=== PATIENT | female | born 1995 | race Caucasian/White ===

== ENCOUNTER 2017-08-23 13:37 | Emergency (ER) | payer OTHER, SELFPAY ==
[2017-08-23 13:39] VITALS: BP 144/86; PULSE 121; RESP 16; TEMP 37.2; O2SAT 97; BMI 28.8
[2017-08-23] MEDS: DiphenhydrAMINE 50 MG/ML Syringe 25 MG IV (15:04)
[2017-08-23] MEDS: Metoclopramide 10 MG/2 ML Vial IV (15:04)
[2017-08-23] MEDS: Ketorolac 30 MG/ML Syringe IV (15:05)
[2017-08-23] MEDS: 0.9% Normal Saline 1,000 ML 999 ML IV (15:05)
--- NOTE | 2017-08-23 15:52 | ED.DCSUM_ITS ---
- ER Visit Summary Date of Service: 08/23/17 Chief Complaint: Sent from urgent care because of fever 104.0? and bad headache History of Present Illness: The patient is a 22 F who went to the urgent care center. Based on her complaints I was contacted by the urgent care provider who sent her to the emergency room for evaluation because of bad headache and temperature documented 204.0?F at home and 100.7? at the urgent care center. She complains of bifrontal headache. She denies photophobia, neck pain or neck stiffness. She denies rash. She denies rhinorrhea, postnasal drainage, sore throat or earache. She states yesterday she had ear pain on the right. She denies cough or shortness of breath. Denies chest pain. She denies dysuria, frequency, urgency or hematuria. She denies abdominal pain or back pain. She has no other complaints please read written note Physical Examination: Patient's vitals are remarkable for blood pressure 144/ 86. Heart rate is 121. Temperature is 97?. Head is atraumatic normocephalic. Pupils are equal round reactive. Extraocular muscles are intact. TMs are pearly white with landmarks noted. Nares patent with normal clear drainage. Posterior pharynx without erythema or exudate. Uvula is midline. There is no dysphonia or dysphasia. Trachea is midline. There is no stridor with auscultation of the neck. Is supple with negative Kernig's and Brezinski sign. Heart is rapid and regular without murmur, gallop or rub. S1 and S2 are normal. Lungs are clear to auscultation with good movement of air bilaterally. Abdomen is soft and nontender with normal bowel sounds. No rash or lesions are noted head, torso or extremities. Patient is alert and oriented ?3. Motor is 5 over 5. Sensory is intact. DTRs are symmetric with no clonus or Babinski sign. Cranial 2 through 12 are intact. Cerebellar testing is normal. Test Results: None were obtained Emergency Department Course and Treatment: Patient was medicated with 25 mg of Benadryl and 30 mg of Toradol IV push followed by 10 mg of Reglan IV push. She was reassessed at 1545. She reports a 95% reduction in her discomfort. She is sitting up smiling in no distress. Treatment Plan: Appropriate home-going instructions Disposition: Discharged to home in stable and improved condition. Should she does not have a primary care physician she was referred to Dr. Alexx Hu Impression: 1. Viral cephalgia 2. Fever secondary #1 This note was generated with [employer] dictation software. It may contain incorrect words, spelling, and punctuation that were not noted in review of the chart prior to signing ED Disposition - Plan for ED Patient: Disposition: Home or Assisted Living Chief Complaint: Headache Instructions: ED Viral Syndrome Referrals: Care Physician,No Primary [Primary Care Provider] - Alexx Hu MD [STAFF PHYSICIAN] - As Needed
[2017-08-23 16:03] VITALS: PULSE 114; RESP 14; O2SAT 97
== END 2017-08-23 16:04 | disposition home or self-care (01) ==
PROVIDERS: Emergency Provider Emergency Medicine
DX: G44.89 Other headache syndrome (principal); R50.9 Fever, unspecified
CPT/HCPCS: 96361; 96374; 96375; 99284; J7030

== ENCOUNTER → 2018-01-19 14:12 | Outpatient (CLI) | payer OTHER, SELFPAY ==
[2018-01-19 16:11] LABS: hCG Titer Quant., Serum 37715 mIU/mL (<9 non-preg)
== END ==
PROVIDERS: Nurse Practitioner Women's Health; Visit Provider Obstetrics & Gynecology
DX: N91.2 Amenorrhea, unspecified (principal)
CPT/HCPCS: 36415; 84702

== ENCOUNTER → 2018-01-30 08:48 | Outpatient (CLI) | payer OTHER, SELFPAY | PROVIDERS: Visit Provider Obstetrics & Gynecology | DX: Z34.00 Encounter for supervision of normal first pregnancy, unspecified trimester (principal) | CPT/HCPCS: 76801 ==

== ENCOUNTER → 2018-01-31 12:42 | Outpatient (CLI) | payer OTHER, SELFPAY ==
[2018-01-31 13:45] LABS: Absolute Lymphocyte Count 2.37 X10^3/ul (0.83-4.51); Basophil# 0.01 X10^3/uL; Basophil% 0.1 % (0-1); Eosinophil# 0.04 X10^3/uL; Eosinophils% 0.5 % (0-5); Hematocrit 36.5 % (37-47); Hemoglobin 12.2 g/dl (12.0-15.0); Lymphocyte # 2.37 X10^3/ul (4.0); Lymphocyte % 29.2 % (19-41); Mean Corp Hgb Conc 33.4 g/gl (32-36); Mean Corpuscular Hgb 31.2 pg (27.0-32.0); Mean Corpuscular Volume 93.4 fL (81-99); Mean Platelet Vol. 11.1 fl (6.2-12.0); Monocyte# 0.69 X10^3/uL; Monocyte% 8.5 % (0-10); Neutrophil # 4.99 X10^3/uL (2.7-7.7); Neutrophil % 61.5 % (47-70); Platelet Count 245 K/mm3 (150-450); RBC Distribution Width CV 12.6 % (11.6-14.6); RBC Distribution Width SD 41.9 fl (35.1-43.9); Red Blood Count 3.91 M/mm3 (4.2-5.4); White Blood Count 8.1 K/mm3 (4.4-11.0)
[2018-01-31 13:47] LABS: POSITIVE COUNT NO; POSITIVE DIFFERENTIAL NO; POSITIVE MORPHOLOGY NO
[2018-01-31 22:34] LABS: Chlamydia Trachomatis by PCR Negative (Negative); Neisserai gonorrhoeae by PCR Negative (Negative); Probe Check PASS; Sample Adequacy Control PASS; Specimen Processing Control PASS
[2018-02-01 09:13] LABS: HIV - WCH Non-Reactive (Nonreactive); Rubella IgG 69.1 IU/mL
[2018-02-03 01:02] LABS: Rapid Plasmin Reagin (RPR) NONREACTIVE (NONREACTIVE)
[2018-02-03 18:41] LABS: HEPATITIS B SURFACE AG Negative (Negative)
== END ==
PROVIDERS: Visit Provider Obstetrics & Gynecology
DX: Z34.90 Encounter for supervision of normal pregnancy, unspecified, unspecified trimester (principal)
CPT/HCPCS: 36415; 85025; 86592; 86703; 86762; 86850; 86900; 87086; 87088; 87186; 87340; 87491; 87591

== ENCOUNTER → 2018-02-28 12:34 | Outpatient (CLI) | payer OTHER, SELFPAY | PROVIDERS: Visit Provider Obstetrics & Gynecology | DX: O23.40 Unspecified infection of urinary tract in pregnancy, unspecified trimester (principal); Z3A.00 Weeks of gestation of pregnancy not specified | CPT/HCPCS: 87086; 87088; 87186 ==

== ENCOUNTER → 2018-03-29 09:36 | Outpatient (CLI) | payer OTHER, SELFPAY ==
[2018-03-29 10:52] LABS: Thyroid Stim Hormone (TSH) 3.15 uIU/mL (0.358-3.74)
[2018-03-31 13:10] LABS: AFP MoM Value 0.85 (.); Comment Report (.); DIA MoM Value 0.68 (.); DIA Value-EIA 96.81 pg/mL (.); DSR (By Age) 1071 (.); DSR (Second Trimester) 10000 (.); Gestat. Age Based On As provided (.); Gestational Age 17.3 WEEKS (.); Insulin Dep Diabetes No (.); hCG Value 15299 mIU/mL (.)
== END ==
PROVIDERS: Referring Provider Nurse Practitioner Women's Health; Visit Provider Nurse Practitioner Women's Health
DX: O23.40 Unspecified infection of urinary tract in pregnancy, unspecified trimester (principal); O99.280 Endocrine, nutritional and metabolic diseases complicating pregnancy, unspecified trimester; E01.0 Iodine-deficiency related diffuse (endemic) goiter; Z3A.00 Weeks of gestation of pregnancy not specified
CPT/HCPCS: 36415; 82105; 82677; 84443; 84702; 86336; 87086; 87088

== ENCOUNTER → 2018-06-15 10:37 | Outpatient (CLI) | payer OTHER, SELFPAY ==
[2018-06-15 10:13] VITALS: BMI 30.9
[2018-06-15 11:30] LABS: Absolute Neutrophil Count 6.2 X10^3/uL (2.0-7.7); Basophil# 0.01 X10^3/uL; Basophil% 0.1 % (0-1); Eosinophil# 0.06 X10^3/uL; Eosinophils% 0.6 % (0-5); Hematocrit 32.2 % (37-47); Hemoglobin 10.8 g/dl (12.0-15.0); Lymphocyte % 27.4 % (19-41); Mean Corp Hgb Conc 33.5 g/gl (32-36); Mean Corpuscular Hgb 32.2 pg (27.0-32.0); Mean Corpuscular Volume 96.1 fL (81-99); Mean Platelet Vol. 11.7 fl (6.2-12.0); Monocyte# 0.61 X10^3/uL; Monocyte% 6.4 % (0-10); Neutrophil # 6.17 X10^3/uL (2.7-7.7); Neutrophil % 65.1 % (47-70); Platelet Count 206 K/mm3 (150-450); RBC Distribution Width CV 12.1 % (11.6-14.6); RBC Distribution Width SD 40.8 fl (35.1-43.9); Red Blood Count 3.35 M/mm3 (4.2-5.4); White Blood Count 9.5 K/mm3 (4.4-11.0)
[2018-06-15 11:32] LABS: POSITIVE COUNT NO; POSITIVE DIFFERENTIAL NO; POSITIVE MORPHOLOGY NO
[2018-06-15 11:35] LABS: Glucose Challenge Gest 1H 50g 142 mg/dL (70-140)
== END ==
PROVIDERS: Referring Provider Nurse Practitioner Women's Health; Visit Provider Nurse Practitioner Women's Health
DX: Z34.90 Encounter for supervision of normal pregnancy, unspecified, unspecified trimester (principal)
CPT/HCPCS: 36415; 82950; 85025

== ENCOUNTER → 2018-06-21 09:34 | Outpatient (CLI) | payer OTHER, SELFPAY ==
[2018-06-15 10:13] VITALS: BMI 30.9
[2018-06-21 11:43] LABS: Glucose GTT-Gestation. Fasting 69 mg/dL (<105)
[2018-06-21 11:45] LABS: Glucose GTT-Gestational 1 Hr 145 mg/dL (<190)
[2018-06-21 13:22] LABS: Glucose GTT-Gestational 2 Hr 111 mg/dL (<165)
[2018-06-21 14:08] LABS: Glucose GTT-Gestational 3 Hr 108 L (<145)
== END ==
PROVIDERS: Referring Provider Nurse Practitioner Women's Health; Visit Provider Nurse Practitioner Women's Health
DX: O99.810 Abnormal glucose complicating pregnancy (principal); Z3A.00 Weeks of gestation of pregnancy not specified
CPT/HCPCS: 36415; 82951; 82952

== ENCOUNTER → 2018-08-09 16:53 | Outpatient (CLI) | payer OTHER, SELFPAY ==
[2018-08-09 09:03] VITALS: BMI 30.5
== END ==
PROVIDERS: Referring Provider Obstetrics & Gynecology; Visit Provider Obstetrics & Gynecology
DX: Z34.90 Encounter for supervision of normal pregnancy, unspecified, unspecified trimester (principal)
CPT/HCPCS: 87081

== ENCOUNTER 2018-09-06 12:15 | Inpatient (IN) | payer OTHER, SELFPAY ==
[2018-09-06 09:54] VITALS: BMI 30.5
--- NOTE | 2018-09-06 10:36 | US_ITS ---
STUDY: SECOND AND THIRD TRIMESTER OBSTETRICAL ULTRASOUND - LIMITED REASON FOR EXAM: Female, 23 years old. growth. LMP: 11/27/2017 PRIOR ULTRASOUND: None. TECHNIQUE: Transabdominal TECHNICAL QUALITY: Adequate. FINDINGS: There is a single intrauterine fetus. The fetus is in a cephalic presentation. There is demonstrated cardiac activity with a heart rate of 127 bpm. There is no measurable amniotic fluid volume consistent with severe oligohydramnios. The placenta is anterior in location and is not low lying. There are Grade 3 placental changes. The cervix is not measurable but is grossly closed. BIOMETRY: BPD: 9.4: 38 weeks, 1 days HC: 34.8: 40 weeks, 3 days AC: 35.4: 39 weeks, 2 days FL: 7.7: 39 weeks, 2 days Age by LMP: 40 weeks, 3 days. CIRO by LMP: 09/03/2018. age by prior US: weeks, days. CIRO by prior US: . age by current US: 39 weeks, 2 days. CIRO by current US: 09/11/2018. Estimated weight: 3721 grams, +/- 543 grams, percentile. Gender: US/OB Limited With Biometrics IMPRESSION: Single live fetus in a vertex presentation. survey not performed on this exam. Placenta is grade 3 and is not low-lying. Severe oligohydramnios. No amniotic fluid is seen. Cervix is grossly closed but not measured. age by current US: 39 weeks, 2 days. CIRO by current US: 09/11/2018. Estimated weight: 3721 grams, +/- 543 grams, percentile. Electronically Signed: Miguel Donis MD at 11:39 EDT , Service support ,
[2018-09-06 12:32] VITALS: BMI 30.1
[2018-09-06] MEDS: Lactated Ringers 1,000 ML 50 ML IV ×3 (12:40→21:43)
[2018-09-06 12:59] LABS: Absolute Lymphocyte Count 1.66 X10^3/ul (0.83-4.51); Absolute Neutrophil Count 6.7 X10^3/uL (2.0-7.7); Basophil# 0.01 X10^3/uL; Basophil% 0.1 % (0-1); Eosinophil# 0.03 X10^3/uL; Eosinophils% 0.3 % (0-5); Hematocrit 34.2 % (37-47); Hemoglobin 11.2 g/dl (12.0-15.0); Lymphocyte # 1.66 X10^3/ul (4.0); Lymphocyte % 18.4 % (19-41); Mean Corp Hgb Conc 32.7 g/gl (32-36); Mean Corpuscular Hgb 30.1 pg (27.0-32.0); Mean Corpuscular Volume 91.9 fL (81-99); Mean Platelet Vol. 12.6 fl (6.2-12.0); Monocyte# 0.62 X10^3/uL; Monocyte% 6.9 % (0-10); Neutrophil # 6.69 X10^3/uL (2.7-7.7); Neutrophil % 74.1 % (47-70); Platelet Count 192 K/mm3 (150-450); RBC Distribution Width CV 13.5 % (11.6-14.6); Red Blood Count 3.72 M/mm3 (4.2-5.4)
[2018-09-06 13:01] LABS: POSITIVE COUNT NO; POSITIVE DIFFERENTIAL NO; POSITIVE MORPHOLOGY NO
[2018-09-06] MEDS: Oxytocin 30 units/NS 500 ml 30 UNITS/500 ML IV.SOLN IV (13:38)
[2018-09-06] MEDS: 0.9% Normal Saline 100 ML IV.SOLN. INTRA-UTER (14:05)
[2018-09-06] MEDS: fentaNYL-bupivacaine (epidural) 100 ML BAG EPIDURAL ×2 (19:18→23:44)
[2018-09-06] MEDS: Amnioinfusion- 0.9% NS 1,000 ML IV.SOLN. INTRA-UTER (21:00)
--- NOTE | 2018-09-06 21:27 | PCM.HP.OB ---
- Problem List (1) Oligohydramnios Status: Acute (2) Anemia affecting Status: Acute Qualifiers: Comment: iron (3) Abnormal glucose affecting Status: Acute Comment: normal 3 hr GTT (4) Status: Acute Qualifiers: Comment: genetic,carrier screening declined.AFP negative.MFM anatomy US normal (5) UTI in Status: Acute Qualifiers: Comment: 02/02/18 E Coli-Rx ampicillin. Repeat culture negative (6) Normal Status: Acute Qualifiers: Comment: PRR CIRO 09/03/18 boy Price Ibrahima (7) Thyromegaly Status: Acute Comment: enlarged right gland, nl labs (8) PCOS (polycystic ovarian syndrome) Status: Acute Comment: clomid History Date of Admission: 09/06/18 Final CIRO: 09/03/18 Gestational age: 40 Weeks and 3 Days History of this : This is a 23 year-old, at 40 weeks gestational age presents for IOL secondary to severe oligo. she was found in the office to have a low fundal height and then growth us showed no fluid visible. she admits good fm and denies any vb lof or regular ctx. Medical History: Medical History (Last Reviewed 09/06/18 @ 09:54 by Ne Trejo) PCOS (polycystic ovarian syndrome) (Acute) E28.2 clomid Surgical History: Surgical History (Last Reviewed 09/06/18 @ 09:54 by Ne Trejo) H/O knee surgery Z98.890 History of foot surgery Z98.890 Allergies No Known Allergies Allergy (Verified 09/06/18 09:53) Home Medications: Home Medications vitamin,calcium,dpgqrbeq-epcz-ycrlv acid tablet 1 tab PO QDAY 01/31/18 ferrous sulfate 325 mg (65 mg iron) tablet 325 mg PO DAILY tab 06/28/18 Smoking Status: Former smoker Alcohol: None Number of Fetus(es): 1 Heart Tracin moderate variability reactive no decelerations category I tracing [place]: no regular History Past Pregnancies: Past Pregnancies Delivery Date Name GA/Weeks Outcome Route Weight Infant Gender Labor Length Anesthesia Delivery Location Provider FOB Labs: Mom's Current Diagnoses Post-term 09/06/18 Mom's Labs & Results 09/06/18 09/06/18 12:40 12:40 WBC 9.0 RBC 3.72 L Hgb 11.2 L Hct 34.2 L MCV 91.9 MCH 30.1 MCHC 32.7 RDW 13.5 RDW Differential 45.0 H Plt Count 192 MPV 12.6 H Immature Gran % (Auto) 0.200 Neut % (Auto) 74.1 H Lymph % (Auto) 18.4 L [place] % (Auto) 6.9 Eos % (Auto) 0.3 Baso % (Auto) 0.1 Absolute Neuts (auto) 6.7 Absolute Lymphs (auto) 1.66 Total Counted Not Reportable Blood Type O POSITIVE Antibody Screen NEGATIVE Course Did the patient receive Yes care? Labs Blood Type: O RH: POSITIVE RPR/VDRL/Syphilis Nonreactive Rubella status Immune HbSAg Negative Date Done: 01/31/18 Chlamydia Negative Gonorrhea Negative HIV/AIDS Non-Reactive Group B Strep: Negative Current Obstetrical History Gestational Diabetes No Incompetent Cervix No Infertility Yes: clomid IUGR No Macrosomia No Hypertension/Pre-eclampsia No Placenta Previa/Abruption No PTL/PROM No Uterine anomaly No Oligohydramnios Yes Polyhydramnios No Multiple gestation No Past Medical History Asthma No Diabetes No Hypertension No Heart disease No Mitral valve prolapse No Neurologic/Seizure disorder/ No Migraines Kidney disease No Liver disease No Varicosities No Clotting disorders/Hx of DVT No Thyroid Dysfunction No Other medical diseases No Psychiatric disorders No Major trauma No Abnormal PAP smear No Sleep apnea No Mammogram in the last 2 years No Enter 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 sx performed for history repair as a child. Social History Marital Status: SINGLE Alleged father Ibrahima Bonilla Hx Smoking Yes Smoking Status Former smoker Expected Infant Delivery Method: Spontaneous Vaginal Review of Systems Constitutional: Denies: Fever, Malaise Eyes: Denies: Blurred vision, Vision Change HEENT: Denies: Head Aches, Visual Changes Cardiovascular: Denies: Chest Pain, Palpitations Respiratory: Denies: Cough, Shortness of Breath, Wheezing Gastrointestinal: Denies: Abdominal Pain, Diarrhea, Nausea, Vomiting Genitourinary: Denies: Dysuria, Hematuria Musculoskeletal: Denies: Joint Pain, Muscle pain Skin: Denies: Lesions, Rash Neurological: Denies: Blurred vision, Focal weakness, Headaches Psychiatric: Denies: Anxiety, Depression Endocrine: Denies: Heat/ Cold Intolerance Hematologic/ Lymphatic: Denies: Easy Bruising, Easy Bleeding Physical Exam General: Alert, Cooperative, No apparent distress HEENT: Atraumatic, Normocephalic. Negative for: Thyromegaly, Lymphadenopathy Cardiovascular: Regular rate Lungs: Normal air movement Abdomen: Soft, Non Tender, Gravid Neurological: Deep Tendon Reflexes 2+/4 and Symmetrical, Neuro grossly intact. Negative for: Clonus MANAGER OF PATIENT: Normal external genitalia. Negative for: Vulvar lesions Estimated gestational size: Appropriate for gestational size Presentation: Cephalic Assessment/Plan All Active Problems (Last Reviewed 09/06/18 @ 09:54 by Ne Trejo) Oligohydramnios (Acute) Anemia affecting (Acute) Abnormal glucose affecting (Acute) (Acute) UTI in (Acute) Normal (Acute) Thyromegaly (Acute) PCOS (polycystic ovarian syndrome) (Acute) This is a 23 year-old, at 40 weeks gestational age presents IOL oligo Patient presents IOL, plan management for , pitocin/AROM Pain management: plans epidural. GBS negative. Management of any complications: oligo I have [facility] and made any clinically relevant updates.
--- NOTE | 2018-09-06 21:30 | HP.PCM_ITS ---
- Problem List (1) Oligohydramnios Status: Acute (2) Anemia affecting Status: Acute Qualifiers: Comment: iron (3) Abnormal glucose affecting Status: Acute Comment: normal 3 hr GTT (4) Status: Acute Qualifiers: Comment: genetic,carrier screening declined.AFP negative.MFM anatomy US normal (5) UTI in Status: Acute Qualifiers: Comment: 02/02/18 E Coli-Rx ampicillin. Repeat culture negative (6) Normal Status: Acute Qualifiers: Comment: PRR CIRO 09/03/18 boy Price Ibrahmia (7) Thyromegaly Status: Acute Comment: enlarged right gland, nl labs (8) PCOS (polycystic ovarian syndrome) Status: Acute Comment: clomid History Date of Admission: 09/06/18 Final CIRO: 09/03/18 Gestational age: 40 Weeks and 3 Days History of this : This is a 23 year-old, at 40 weeks gestational age presents for IOL secondary to severe oligo. she was found in the office to have a low fundal height and then growth us showed no fluid visible. she admits good fm and denies any vb lof or regular ctx. Medical History: Medical History (Last Reviewed 09/06/18 @ 09:54 by Ne Trejo) PCOS (polycystic ovarian syndrome) (Acute) E28.2 clomid Surgical History: Surgical History (Last Reviewed 09/06/18 @ 09:54 by Ne Trejo) H/O knee surgery Z98.890 History of foot surgery Z98.890 Allergies No Known Allergies Allergy (Verified 09/06/18 09:53) Home Medications: Home Medications vitamin,calcium,dsxiwdcq-chdj-kytfg acid tablet 1 tab PO QDAY 01/31/18 ferrous sulfate 325 mg (65 mg iron) tablet 325 mg PO DAILY tab 06/28/18 Smoking Status: Former smoker Alcohol: None Number of Fetus(es): 1 Heart Tracin moderate variability reactive no decelerations category I tracing [place]: no regular History Past Pregnancies: Past Pregnancies Delivery Date Name GA/Weeks Outcome Route Weight Infant Gender Labor Length Anesthesia Delivery Location Provider FOB Labs: Mom's Current Diagnoses Post-term 09/06/18 Mom's Labs & Results 09/06/18 09/06/18 12:40 12:40 WBC 9.0 RBC 3.72 L Hgb 11.2 L Hct 34.2 L MCV 91.9 MCH 30.1 MCHC 32.7 RDW 13.5 RDW Differential 45.0 H Plt Count 192 MPV 12.6 H Immature Gran % (Auto) 0.200 Neut % (Auto) 74.1 H Lymph % (Auto) 18.4 L [place] % (Auto) 6.9 Eos % (Auto) 0.3 Baso % (Auto) 0.1 Absolute Neuts (auto) 6.7 Absolute Lymphs (auto) 1.66 Total Counted Not Reportable Blood Type O POSITIVE Antibody Screen NEGATIVE Course Did the patient receive Yes care? Labs Blood Type: O RH: POSITIVE RPR/VDRL/Syphilis Nonreactive Rubella status Immune HbSAg Negative Date Done: 01/31/18 Chlamydia Negative Gonorrhea Negative HIV/AIDS Non-Reactive Group B Strep: Negative Current Obstetrical History Gestational Diabetes No Incompetent Cervix No Infertility Yes: clomid IUGR No Macrosomia No Hypertension/Pre-eclampsia No Placenta Previa/Abruption No PTL/PROM No Uterine anomaly No Oligohydramnios Yes Polyhydramnios No Multiple gestation No Past Medical History Asthma No Diabetes No Hypertension No Heart disease No Mitral valve prolapse No Neurologic/Seizure disorder/ No Migraines Kidney disease No Liver disease No Varicosities No Clotting disorders/Hx of DVT No Thyroid Dysfunction No Other medical diseases No Psychiatric disorders No Major trauma No Abnormal PAP smear No Sleep apnea No Mammogram in the last 2 years No Enter 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 sx performed for history repair as a child. Social History Marital Status: SINGLE Alleged father Ibrahima Bonilla Hx Smoking Yes Smoking Status Former smoker Expected Infant Delivery Method: Spontaneous Vaginal Review of Systems Constitutional: Denies: Fever, Malaise Eyes: Denies: Blurred vision, Vision Change HEENT: Denies: Head Aches, Visual Changes Cardiovascular: Denies: Chest Pain, Palpitations Respiratory: Denies: Cough, Shortness of Breath, Wheezing Gastrointestinal: Denies: Abdominal Pain, Diarrhea, Nausea, Vomiting Genitourinary: Denies: Dysuria, Hematuria Musculoskeletal: Denies: Joint Pain, Muscle pain Skin: Denies: Lesions, Rash Neurological: Denies: Blurred vision, Focal weakness, Headaches Psychiatric: Denies: Anxiety, Depression Endocrine: Denies: Heat/ Cold Intolerance Hematologic/ Lymphatic: Denies: Easy Bruising, Easy Bleeding Physical Exam General: Alert, Cooperative, No apparent distress HEENT: Atraumatic, Normocephalic. Negative for: Thyromegaly, Lymphadenopathy Cardiovascular: Regular rate Lungs: Normal air movement Abdomen: Soft, Non Tender, Gravid Neurological: Deep Tendon Reflexes 2+/4 and Symmetrical, Neuro grossly intact. 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 Negative for: Vulvar lesions Estimated gestational size: Appropriate for gestational size Presentation: Cephalic Assessment/Plan All Active Problems (Last Reviewed 09/06/18 @ 09:54 by Ne Trejo) Oligohydramnios (Acute) Anemia affecting (Acute) Abnormal glucose affecting (Acute) (Acute) UTI in (Acute) Normal (Acute) Thyromegaly (Acute) PCOS (polycystic ovarian syndrome) (Acute) This is a 23 year-old, at 40 weeks gestational age presents IOL oligo Patient presents IOL, plan management for , pitocin/AROM Pain management: plans epidural. GBS negative. Management of any complications: oligo [facility] and made any clinically relevant updates.
[2018-09-06] MEDS: Ondansetron 4 MG/2 ML Vial IV (23:42)
[2018-09-07] MEDS: Oxytocin 30 units/NS 500 ml 30 UNITS/500 ML IV.SOLN 334 UNITS IV (00:55)
[2018-09-07] MEDS: Oxytocin 30 units/NS 500 ml 30 UNITS/500 ML IV.SOLN 167 UNITS IV (01:26)
--- NOTE | 2018-09-07 01:46 | PCM.OB.VAG ---
- Problem List (1) Oligohydramnios Status: Acute (2) Anemia affecting Status: Acute Qualifiers: Comment: iron (3) Abnormal glucose affecting Status: Acute Comment: normal 3 hr GTT (4) Status: Acute Qualifiers: Comment: genetic,carrier screening declined.AFP negative.MFM anatomy US normal (5) UTI in Status: Acute Qualifiers: Comment: 02/02/18 E Coli-Rx ampicillin. Repeat culture negative (6) Normal Status: Acute Qualifiers: Comment: PRR CIRO 09/03/18 boy Price Ibrahima (7) Thyromegaly Status: Acute Comment: enlarged right gland, nl labs (8) PCOS (polycystic ovarian syndrome) Status: Acute Comment: clomid Vaginal Delivery Maternal Presentation: Medically Indicated Induction Induction of labor severe oligohydramnios 40 weeks 3 days Method of Induction: Pitocin, [place] [facility] Medical Reason for Induction: - - Oligohydramnios Amniotic Membrane Rupture Type: Artificial Amniotic Fluid Description: Clear Final CIRO: 09/03/18 Gestational age: 40 Weeks and 4 Days Date of Procedure: 09/07/18 Pre-Operative Diagnosis: Induction of labor oligo Post-Operative Diagnosis: Same Surgery/ Procedure Performed: Spontaneous Vaginal Delivery Type of Anesthesia: Epidural Description of Procedure: Patient began pushing and delivered the head in the EDEN presentation. The head was delivered atraumatically. The anterior and posterior shoulders delivered without complication followed by the rest of the and the infant was placed on the maternal abdomen. Delayed cord clamping was employed for approximately 60 seconds. Cord was clamped and cut and gentle traction was applied to the cord and the placenta delivered spontaneously immediately following it was noted to be intact with three-vessel cord. The perineum and vagina were inspected and noted to have a first-degree perineal laceration was repaired in the usual fashion. EBL was 300 cc. Patient and infant tolerated delivery well. Presentation: EDEN Placental Delivery Description: Spontaneous - small for GA and peripheral cotyledon Placenta Disposition: [facility] Cord Vessel Description: 3 Vessels Cord Entanglement: None Estimated Blood Loss: 300 Infant A gender: Male Episiotomy Description: None Laceration: Perineal Extension/lac, 1st degree Medications given after delivery: IV Pitocin Complications: None
[2018-09-07] MEDS: 0.9% Saline Lock 10 ML Syringe IV (02:30)
[2018-09-07 09:00] VITALS: BP 129/64; PULSE 112; RESP 16; TEMP 37.1; O2SAT 98
[2018-09-07 11:50] VITALS: BP 97/55; PULSE 101; RESP 16; TEMP 36.9; O2SAT 96
[2018-09-07] MEDS: Senna/Docusate Sodium 1 Tablet PO (15:45)
[2018-09-07 16:24] VITALS: BP 118/71; PULSE 96; RESP 14; TEMP 36.5
[2018-09-07 16:26] VITALS: O2SAT 98
[2018-09-07 20:30] VITALS: BP 126/77; PULSE 88; RESP 16; TEMP 36.8
[2018-09-08 01:15] VITALS: BP 111/62; PULSE 78; RESP 16; TEMP 36.6
[2018-09-08] MEDS: Senna/Docusate Sodium 1 Tablet PO (08:01)
[2018-09-08 08:30] VITALS: BP 108/62; PULSE 81; RESP 17; TEMP 36.6; O2SAT 100
--- NOTE | 2018-09-08 14:27 | PCM.PN.OB ---
Subjective: doing well no complaints pain controlled no CP SOB N V ambulating well tolerating po lochia moderate, going well - Physical Exam General: Alert, Oriented x3 Vital Signs Temp Pulse Resp BP Pulse Ox 97.9 F 81 17 108/62 100 09/08/18 08:30 09/08/18 08:30 09/08/18 08:30 09/08/18 08:30 09/08/18 08:30 Oxygen Delivery Method Room Air Weight: 198 lb Body Mass Index (BMI) 30.1 Intake and Output for Last 24 Hours 09/06/18 09/07/18 09/08/18 23:59 23:59 23:59 Intake Total 3736 / 3736 Output Total 2375 / 2375 1500 / 1500 Balance 1361 / 1361 -1500 / -1500 Medical Necessity - Tobacco Use Smoking Status: Former smoker Assessment/Plan All Active Problems (Last Reviewed 09/06/18 @ 09:54 by Ne Trejo) Oligohydramnios (Acute) Anemia affecting (Acute) Abnormal glucose affecting (Acute) (Acute) UTI in (Acute) Normal (Acute) Thyromegaly (Acute) PCOS (polycystic ovarian syndrome) (Acute) s/p PPD # 2 1. routine post delivery care 2. breast feeding- support given 3. rh positive 4. rubella immune
--- NOTE | 2018-09-08 14:27 | PCM.DCVAG ---
Discharge Diet: No Restrictions Discharge Activity: Return to Normal Activity, May not drive while taking narcotic pain medications., May Shower May resume sexual activity in: 4-6 weeks Call your doctor if your incision/area has: Continuous Slow Oozing, Sudden Increased Bleeding, Increased Pain/ Swelling, Increased Redness, Foul Smelling Discharge Additional Instructions: If you experience any of the following, contact your healthcare provider. Bleeding that soaks a pad every hour for 2 hours Fever 100.4 or higher Unrelieved incision or abdominal pain Swelling, redness, discharge or bleeding from your incision or episiotomy site Your incision begins to separate Problems urinating (including inability to urinate or burning while urinating). Visual changes Severe headache Flu-like symptoms Pain or redness in one of both of your breasts Pain, warmth, tenderness or swelling in your legs, especially the calf area Frequent nausea and vomiting Symptoms of depression or anxiety If you experience any of the following, call 911 or go to the nearest Emergency Room. Chest pain Problems breathing Seizure activity Partial or complete paralysis of a body part, slurred speech, weakness or drooping of the face, or a sudden inability to walk or hold your balance Allergies/Adverse Reactions: Allergies No Known Allergies Allergy (Verified 09/06/18 09:53) Medications to take at Discharge vitamin,calcium,zldyscwq-ggxx-svrne acid tablet 1 tab PO QDAY 01/31/18 ferrous sulfate 325 mg (65 mg iron) tablet 325 mg PO DAILY tab 06/28/18 Please Follow Up With: Samantha Serra MD - [phone] When: Call to make an appointment with your doctor in 6 weeks. If you had elevated Blood pressure or 4th degree laceration you will need to be seen in 2 weeks. Primary Care Physician: Care Physician,No Primary [Primary Care Provider] - Test Results: Test results from this visit will be discussed in further detail at your follow-up appointment, if applicable.
--- NOTE | 2018-09-08 14:28 | DCINST_ITS ---
Discharge Diet: No Restrictions Discharge Activity: Return to Normal Activity, May not drive while taking narcotic pain medications., May Shower May resume sexual activity in: 4-6 weeks Call your doctor if your incision/area has: Continuous Slow Oozing, Sudden Increased Bleeding, Increased Pain/ Swelling, Increased Redness, Foul Smelling Discharge Additional Instructions: If you experience any of the following, contact your healthcare provider. * Bleeding that soaks a pad every hour for 2 hours * Fever 100.4 or higher * Unrelieved incision or abdominal pain * Swelling, redness, discharge or bleeding from your incision or episiotomy site * Your incision begins to separate * Problems urinating (including inability to urinate or burning while urinating). * Visual changes * Severe headache * Flu-like symptoms * Pain or redness in one of both of your breasts * Pain, warmth, tenderness or swelling in your legs, especially the calf area * Frequent nausea and vomiting * Symptoms of depression or anxiety If you experience any of the following, call 911 or go to the nearest Emergency Room. * Chest pain * Problems breathing * Seizure activity * Partial or complete paralysis of a body part, slurred speech, weakness or drooping of the face, or a sudden inability to walk or hold your balance Allergies/Adverse Reactions: Allergies No Known Allergies Allergy (Verified 09/06/18 09:53) Medications to take at Discharge vitamin,calcium,ugqajkhu-yref-hvfru acid tablet 1 tab PO QDAY 01/31/18 ferrous sulfate 325 mg (65 mg iron) tablet 325 mg PO DAILY tab 06/28/18 Please Follow Up With: Samantha Serra MD - [phone] When: Call to make an appointment with your doctor in 6 weeks. If you had elevated Blood pressure or 4th degree laceration you will need to be seen in 2 weeks. Primary Care Physician: Care Physician,No Primary [Primary Care Provider] - Test Results: Test results from this visit will be discussed in further detail at your follow- up appointment, if applicable.
[2018-09-08 15:00] VITALS: BP 119/76; PULSE 80; RESP 17; TEMP 36.7; O2SAT 99
== END 2018-09-08 15:00 | disposition home or self-care (01) | DRG 807 ==
LOC: WP 12:19
PROVIDERS: Admitting Provider Obstetrics & Gynecology; Referring Provider Obstetrics & Gynecology; Visit Provider Obstetrics & Gynecology
DX: O41.03X0 Oligohydramnios, third trimester, not applicable or unspecified (principal); Z37.0 Single live birth; O70.0 First degree perineal laceration during delivery; O43.893 Other placental disorders, third trimester; O99.013 Anemia complicating pregnancy, third trimester; O99.810 Abnormal glucose complicating pregnancy; O99.283 Endocrine, nutritional and metabolic diseases complicating pregnancy, third trimester; E01.0 Iodine-deficiency related diffuse (endemic) goiter; E28.2 Polycystic ovarian syndrome; Z3A.40 40 weeks gestation of pregnancy; Z87.891 Personal history of nicotine dependence
CPT/HCPCS: 59025; 59050; 76816; 85025; 86850; 86900; 99218; J7030; J7120; A4216; G0378; J2405

== ENCOUNTER 2018-09-15 19:12 | Inpatient (IN) | payer OTHER, SELFPAY ==
[2018-09-15] VITALS (7 sets, daily range): BP systolic 86–111; BP diastolic 53–72; PULSE 108–136; RESP 15–18; TEMP 37.4–38.3; O2SAT 95–97; BMI 27.3; BMI 25.6
[2018-09-15 19:46] LABS: Absolute Lymphocyte Count 0.59 X10^3/ul (0.83-4.51); Absolute Neutrophil Count 16.8 X10^3/uL (2.0-7.7); Basophil# 0.01 X10^3/uL; Basophil% 0.1 % (0-1); Hematocrit 34.5 % (37-47); Hemoglobin 11.2 g/dl (12.0-15.0); Lymphocyte # 0.59 X10^3/ul (4.0); Lymphocyte % 3.2 % (19-41); Mean Corp Hgb Conc 32.5 g/gl (32-36); Mean Corpuscular Hgb 28.9 pg (27.0-32.0); Mean Corpuscular Volume 89.1 fL (81-99); Mean Platelet Vol. 11.5 fl (6.2-12.0); Monocyte# 0.82 X10^3/uL; Monocyte% 4.5 % (0-10); Neutrophil # 16.77 X10^3/uL (2.7-7.7); Neutrophil % 91.8 % (47-70); Platelet Count 265 K/mm3 (150-450); RBC Distribution Width CV 13.3 % (11.6-14.6); RBC Distribution Width SD 42.5 fl (35.1-43.9); Red Blood Count 3.87 M/mm3 (4.2-5.4); White Blood Count 18.3 K/mm3 (4.4-11.0)
[2018-09-15 19:49] LABS: Differential Indicated SCAN CRITERIA MET; POSITIVE COUNT NO; POSITIVE DIFFERENTIAL YES; POSITIVE MORPHOLOGY YES
[2018-09-15 20:11] LABS: Lactic Acid 2.1 mmol/L (0.4-2.0)
--- NOTE | 2018-09-15 20:14 | ED.RN ---
dr. patterson informed of lactic 2.1. pt remain in waiting area.
[2018-09-15 20:16] LABS: Differential Comment SCANNED
--- NOTE | 2018-09-15 21:16 | ED.VISSUMM ---
- ER Visit Summary Date of Service: 09/15/18 Chief Complaint: Right breast pain History of Present Illness: The patient is a 23 F who is 8 days and presents for right breast pain and fever. Onset was this morning and was sudden. Patient is having severe right-sided breast pain radiating into the right axilla. She denies any increased vaginal bleeding or abdominal pain beyond what she would expect from recent delivery. Patient is on vitamins. No other medical history. Physical Examination: Vital signs: Febrile at 100.9, hemodynamically stable, no hypoxia on room air General: well nourished, well developed, in no distress Skin: warm, dry, no rash, no pallor, significant cellulitis to the right breast involving the entire breast and radiating into the right and left chest, no fluctuance noted HEENT: normocephalic and atraumatic; PERRL, EOMI, moist mucous membranes Cardiovascular: regular rate and rhythm without murmurs, no peripheral edema, 2+ pulses all distal extremities Respiratory: No increased work of breathing, lungs are clear to auscultation bilaterally, no rales, rhonchi or wheezing Abdominal: Abdomen is soft, nontender with normoactive bowel sounds, no guarding or rebound, no masses MSK: Moves all extremities, no deformities, normal strength Neuro: Awake and alert, oriented ?4. No facial droop, sensation and motor function intact and symmetric Test Results: Abnormal Lab Results 09/15/18 09/15/18 09/15/18 19:26 19:26 19:46 WBC 18.3 H RBC 3.87 L Hgb 11.2 L Hct 34.5 L MCV 89.1 MCH 28.9 MCHC 32.5 RDW 13.3 RDW Differential 42.5 Plt Count 265 MPV 11.5 Immature Gran % (Auto) 0.400 Neut % (Auto) 91.8 H Lymph % (Auto) 3.2 L [place] % (Auto) 4.5 Eos % (Auto) 0.0 Baso % (Auto) 0.1 Absolute Neuts (auto) 16.8 H Absolute Lymphs (auto) 0.59 L Total Counted Not Reportable Differential Comment SCANNED PT INR APTT Sodium 134 L Potassium 3.2 L Chloride 102 Carbon Dioxide 23.0 Anion Gap 9 BUN 7 Creatinine 0.75 Estim Creat Clear Calc 116.68 Est GFR (MDRD) Af Amer 123 Est GFR (MDRD) Non-Af 102 BUN/Creatinine Ratio 9.4 L Glucose 107 H Lactic Acid 2.1 H Calcium 8.1 L Total Bilirubin 0.40 AST 16 ALT 19 Alkaline Phosphatase 120 H Total Protein 6.9 Albumin 3.0 L Globulin 3.9 Albumin/Globulin Ratio 0.8 L Urine Color Urine Clarity Urine pH Ur Specific [place] Urine Protein Urine Glucose (UA) Urine Ketones Urine Occult Blood Urine Nitrite Urine Bilirubin Urine Urobilinogen Ur Leukocyte Esterase Urine RBC Urine WBC Ur Squamous Epith Cells Urine Bacteria Urine Mucus 09/15/18 09/15/18 22:00 22:38 WBC RBC Hgb Hct MCV MCH MCHC RDW RDW Differential Plt Count MPV Immature Gran % (Auto) Neut % (Auto) Lymph % (Auto) [place] % (Auto) Eos % (Auto) Baso % (Auto) Absolute Neuts (auto) Absolute Lymphs (auto) Total Counted Differential Comment PT 15.0 H INR 1.2 APTT 31.1 Sodium Potassium Chloride Carbon Dioxide Anion Gap BUN Creatinine Estim Creat Clear Calc Est GFR (MDRD) Af Amer Est GFR (MDRD) Non-Af BUN/Creatinine Ratio Glucose Lactic Acid Calcium Total Bilirubin AST ALT Alkaline Phosphatase Total Protein Albumin Globulin Albumin/Globulin Ratio Urine Color Yellow Urine Clarity Sl. Cloudy Urine pH 6.0 Ur Specific [place] 1.010 Urine Protein 30 H Urine Glucose (UA) Normal Urine Ketones 5 H Urine Occult Blood 250 H Urine Nitrite Positive H Urine Bilirubin Negative Urine Urobilinogen Normal Ur Leukocyte Esterase 500 H Urine RBC 0-5 SEEN Urine WBC 10-25 SEEN Ur Squamous Epith Cells 0-5 SEEN Urine Bacteria 2+ Urine Mucus RARE Clinical Impression(s) from Imaging Studies Chest X-Ray 09/15/18 21:31 IMPRESSION: Normal x-ray examination of the chest. No acute findings in the lungs Electronically Signed: Yuri Patel MD at 22:58 EDT Tel , Service support , Medications Given Acetaminophen (Tylenol) 1,000 mg PO Q6H PRN PRN PRN Reason: PAIN Enoxaparin Sodium (Lovenox) 40 mg SC DAILY EVER Cefazolin Sodium 2 gm/ Sodium (Chloride) 110 mls @ 150 mls/hr IV Q6 EVER Ondansetron HCl (Zofran) 4 mg IV Q8H PRN PRN PRN Reason: NAUSEA Oxycodone HCl (Oxyir) 5 - 10 mg PO Q4H PRN PRN PRN Reason: SEVERE PAIN (6-10/10) Sodium Chloride () 5 - 15 ml IV UD PRN PRN Reason: SALINE FLUSH Last Admin: 09/16/18 00:25 Dose: 10 ml Discontinued Medications Acetaminophen (Tylenol) 1,000 mg PO X1 ONE Stop: 09/15/18 21:16 Last Admin: 09/15/18 21:21 Dose: 1,000 mg Sodium Chloride () 1,000 mls @ 999 mls/hr IV .Q1H1M ONE Stop: 09/15/18 22:15 Last Admin: 09/15/18 21:22 Dose: 999 mls/hr Cefazolin Sodium 2 gm/ Sodium (Chloride) 110 mls @ 150 mls/hr IV X1 ONE Stop: 09/15/18 22:03 Last Admin: 09/15/18 21:55 Dose: 150 mls/hr Lactated Ringer's () 500 mls @ 999 mls/hr IV .Q31M EVER Stop: 09/16/18 00:15 Last Admin: 09/16/18 00:23 Dose: 999 mls/hr Emergency Department Course and Treatment: Patient meets sepsis criteria with leukocytosis and fever. Lactate is 2.1. Patient was given IV fluids and Tylenol for the fever. She was started on cefazolin and after discussion with Dr. Serra for antibiotics for mastitis that are safe in breast-feeding. Patient was admitted to Dr. Serra for further management. Treatment Plan: [] Disposition: [] Impression: acute right mastitis; severe sepsis This note was generated with [employer] software. It may contain incorrect words, spelling, and punctuation that were not noted in review of the chart prior to signing ED Disposition - Plan for ED Patient: Disposition: Acute Care [facility]
[2018-09-15] MEDS: Acetaminophen 500 MG Tablet 1000 MG PO (21:21)
[2018-09-15] MEDS: 0.9% Normal Saline 1,000 ML 999 ML IV (21:22)
--- NOTE | 2018-09-15 21:26 | EKG12_ITS ---
Test Reason : Blood Pressure : / mmHG Vent. Rate : 124 BPM Atrial Rate : 124 BPM P-R Int : 174 ms QRS Dur : 078 ms QT Int : 298 ms P-R-T Axes : 039 038 021 degrees QTc Int : 428 ms Sinus tachycardia Possible Left atrial enlargement Borderline ECG Confirmed by SAIRA REEVES, REYNALDO ([id number]), news video editor DWIGHT TOMAS ([id number]) on 09/18/2018 1:56:41 PM Referred By: Samantha Serra Confirmed By:REYNALDO CHÁVEZ MD
--- NOTE | 2018-09-15 21:31 | RAD_ITS ---
STUDY: X-RAY CHEST REASON FOR EXAM: Female, 23 years old. Fever and breast pain TECHNIQUE: 1 view COMPARISON: None. FINDINGS: The lungs are clear and expanded. There is no demonstrated pleural abnormality. Normal size heart. Normal mediastinum and claudia. Normal visualized pulmonary arteries. Normal visualized aortic arch and descending thoracic aorta. Normal visualized thoracic spine. Normal visualized ribs, clavicles, and shoulders. There is no demonstrated abnormality of the visualized soft tissue structures of the upper abdomen. RAD/Chest 1 View (Portable) IMPRESSION: Normal x-ray examination of the chest. No acute findings in the lungs Electronically Signed: Yuri Patel MD at 22:58 EDT Tel , Service support ,
[2018-09-15] MEDS: Cefazolin 2 GM in 0.9% Normal Saline 100 ML IV (21:55)
[2018-09-15 22:32] LABS: Color, Urine Yellow (Yellow); Glucose, Dipstick Normal (Normal); Ketone-Dipstick 5 mg/dl (Negative); Leukocyte Esterase-Dipstick 500 /ul (Negative); Nitrite-Dipstick Positive (Negative); Occult Blood-Urine 250 /ul (Negative); Protein-Dipstick 30 mg/dl (Negative); Urine Bilirubin Dipstick Negative (Negative); Urine Clarity Sl. Cloudy (Clear); Urine Urobilinogen Normal (Normal)
[2018-09-15 22:38] LABS: Red Blood Cells-Urine 0-5 SEEN /hpf (0-5); Squamous Epithelial Cells - UA 0-5 SEEN /hpf (5-10); White Blood Cells 10-25 SEEN /hpf (0-5)
[2018-09-15 22:39] LABS: Bacteria 2+ /hpf (None Seen); Mucous, Urine RARE /hpf (<or=2+)
[2018-09-15 22:40] LABS: ALB/GLOB Ratio 0.8 RATIO (0.9-2.4); AST(SGOT) 16 U/L (15-37); Alanine Aminotransfer ALT/SGPT 19 U/L (13-56); Alkaline Phosphatase 120 U/L (45-117); Anion Gap 9 (5-15); BUN 7 mg/dL (7-18); BUN/Creat Ratio 9.4 RATIO (10-20); Calcium,Total 8.1 mg/dL (8.5-10.1); Chloride 102 mmol/L (98-107); Creatinine, Serum 0.75 mg/dL (0.55-1.02); EST Glomerular Filtration Rate 102 mL/min (>60); Est Glom Filt Rate - Afr Amer 123 mL/min (>60); Estimated Creatinine Clearance 116.68 ml/min; Globulin 3.9 g/dL (2.2-4.2); Glucose 107 mg/dL (74-106); Potassium 3.2 mmol/L (3.5-5.1); Protein, Total 6.9 g/dL (6.4-8.2); Sodium Level 134 mmol/L (136-145)
[2018-09-15 22:55] LABS: International Normalized Ratio 1.2; Partial Thromboplast Time 31.1 Seconds (24.1-36.2)
[2018-09-15 23:34] LABS: Reflex Lactate? Y
[2018-09-16] MEDS: Lactated Ringers 500 ML 999 ML IV ×2 (00:23→02:52)
[2018-09-16] MEDS: 0.9% NaCl Peripheral Flush Adult/Peds IV (00:25)
[2018-09-16 00:39] LABS: Lactic Acid 1.1 mmol/L (0.4-2.0)
--- NOTE | 2018-09-16 02:36 | PCM.HP.STD ---
Problem List (1) Mastitis Status: Acute (2) UTI (urinary tract infection) Status: Acute History of Present Illness Date of Admission: 09/16/18 The patient is a 23 year old F presents 9 days with severe mastitis and sepsis. Patient presented to the emergency room with a 18-hour rapid onset of right breast pain with edema and fever up to 100.9. Upon presentation she was tachycardic and hypotensive and had a mildly elevated lactate of 2.1. She has had positive nitrates in her urine. Patient was given fluid and started on antibiotics and admitted to the house at all and her lactate was 1.4 after several hours. Tachycardia and hypotension improved with IV fluids. Past Medical History Medical History: Medical History (Last Reviewed 09/06/18 @ 09:54 by Ne Trejo) PCOS (polycystic ovarian syndrome) (Acute) E28.2 clomid Allergies No Known Allergies Allergy (Verified 09/15/18 19:15) Home Medications: Ambulatory Orders Medication Instructions Recorded 1 tab PO QDAY 01/31/18 vitamin,calcium,[id number] acid tablet ferrous sulfate 325 mg (65 mg 325 mg PO DAILY tab 06/28/18 iron) tablet Surgical History: Surgical History (Last Reviewed 09/06/18 @ 09:54 by Ne Trejo) H/O knee surgery Z98.890 History of foot surgery Z98.890 Smoking Status: Former smoker Review of Systems Constitutional: Reports: Fever, Malaise Eyes: Denies: Blurred vision, Vision Change HEENT: Denies: Head Aches, Visual Changes Cardiovascular: Denies: Chest Pain, Palpitations Respiratory: Denies: Cough, Shortness of Breath, Wheezing Gastrointestinal: Denies: Abdominal Pain, Diarrhea, Nausea, Vomiting Genitourinary: Reports: Dysuria. Denies: Hematuria Gynecological: Reports: Vaginal bleeding, Vaginal discharge Musculoskeletal: Reports: Muscle pain. Denies: Joint Pain Skin: Denies: Lesions, Rash Neurological: Denies: Blurred vision, Focal weakness, Headaches Psychiatric: Denies: Anxiety, Depression Endocrine: Denies: Heat/ Cold Intolerance Hematologic/ Lymphatic: Denies: Easy Bruising, Easy Bleeding VTE Information - Inpt Only VTE Present on Admission: No Patient Problems: Active and Suspected Problems (Last Reviewed 09/06/18 @ 09:54 by Ne Trejo) Mastitis (Acute) UTI (urinary tract infection) (Acute) - Physical Exam General: Alert, Oriented x3, Cooperative HEENT: Atraumatic, EOMI, Normocephalic Neck: Supple Lungs: Clear to auscultation, Normal air movement Cardiovascular: No murmurs, Tachycardic Abdomen: Soft, Non Tender Extremities: No edema Skin: No rashes, No breakdown Musculoskeletal: No Tenderness to Palpation of Joints or Extremities Neurological: Cranial nerves II-XII grossly intact Psych/Mental Status: Normal Affect, Appropriate Vital Signs Temp Pulse Resp BP Pulse Ox 99.3 F H 112 H 16 93/55 L 96 09/15/18 23:45 09/15/18 23:45 09/15/18 23:45 09/15/18 23:45 09/15/18 23:45 Oxygen Delivery Method Room Air Weight: 168 lb 8 oz Body Mass Index (BMI) 25.6 Intake and Output for Last 24 Hours 09/14/18 09/15/18 09/16/18 23:59 23:59 23:59 Intake Total 200 / 200 Balance 200 / 200 Laboratory Tests Past 24 Hrs 09/15/18 09/15/18 09/15/18 19:26 19:26 19:46 WBC 18.3 H RBC 3.87 L Hgb 11.2 L Hct 34.5 L MCV 89.1 MCH 28.9 MCHC 32.5 RDW 13.3 RDW Differential 42.5 Plt Count 265 MPV 11.5 Immature Gran % (Auto) 0.400 Neut % (Auto) 91.8 H Lymph % (Auto) 3.2 L [place] % (Auto) 4.5 Eos % (Auto) 0.0 Baso % (Auto) 0.1 Absolute Neuts (auto) 16.8 H Absolute Lymphs (auto) 0.59 L Total Counted Not Reportable Differential Comment SCANNED PT INR APTT Sodium 134 L Potassium 3.2 L Chloride 102 Carbon Dioxide 23.0 Anion Gap 9 BUN 7 Creatinine 0.75 Estim Creat Clear Calc 116.68 Est GFR (MDRD) Af Amer 123 Est GFR (MDRD) Non-Af 102 BUN/Creatinine Ratio 9.4 L Glucose 107 H Lactic Acid 2.1 H Calcium 8.1 L Total Bilirubin 0.40 AST 16 ALT 19 Alkaline Phosphatase 120 H Total Protein 6.9 Albumin 3.0 L Globulin 3.9 Albumin/Globulin Ratio 0.8 L Urine Color Urine Clarity Urine pH Ur Specific [place] Urine Protein Urine Glucose (UA) Urine Ketones Urine Occult Blood Urine Nitrite Urine Bilirubin Urine Urobilinogen Ur Leukocyte Esterase Urine RBC Urine WBC Ur Squamous Epith Cells Urine Bacteria Urine Mucus 09/15/18 09/15/18 09/15/18 22:00 22:38 23:59 WBC RBC Hgb Hct MCV MCH MCHC RDW RDW Differential Plt Count MPV Immature Gran % (Auto) Neut % (Auto) Lymph % (Auto) [place] % (Auto) Eos % (Auto) Baso % (Auto) Absolute Neuts (auto) Absolute Lymphs (auto) Total Counted Differential Comment PT 15.0 H INR 1.2 APTT 31.1 Sodium Potassium Chloride Carbon Dioxide Anion Gap BUN Creatinine Estim Creat Clear Calc Est GFR (MDRD) Af Amer Est GFR (MDRD) Non-Af BUN/Creatinine Ratio Glucose Lactic Acid 1.1 Calcium Total Bilirubin AST ALT Alkaline Phosphatase Total Protein Albumin Globulin Albumin/Globulin Ratio Urine Color Yellow Urine Clarity Sl. Cloudy Urine pH 6.0 Ur Specific [place] 1.010 Urine Protein 30 H Urine Glucose (UA) Normal Urine Ketones 5 H Urine Occult Blood 250 H Urine Nitrite Positive H Urine Bilirubin Negative Urine Urobilinogen Normal Ur Leukocyte Esterase 500 H Urine RBC 0-5 SEEN Urine WBC 10-25 SEEN Ur Squamous Epith Cells 0-5 SEEN Urine Bacteria 2+ Urine Mucus RARE Assessment/Plan All Active Problems (Last Reviewed 09/06/18 @ 09:54 by Ne Trejo) Oligohydramnios (Acute) Mastitis (Acute) UTI (urinary tract infection) (Acute) Anemia affecting (Acute) Abnormal glucose affecting (Acute) (Acute) UTI in (Acute) Normal (Acute) Thyromegaly (Acute) PCOS (polycystic ovarian syndrome) (Acute) 23-year-old 1 week presents with sepsis secondary to UTI mastitis 1. Mastitis with sepsis?lactate already within normal limits, vital signs improved with IV fluids. Last elevated temp was 100.4 at 10:00. Patient already feeling better and pain controlled. Continue 24 hours of IV Ancef and switch to oral Keflex. Culture sent. 2. UTI?urine culture sent, 24 hours of IV Ancef and then oral Keflex. 3. Hypokalemia?replace with K-Dur 4. Continue breast-feeding, patient pumping
[2018-09-16] MEDS: Acetaminophen 500 MG Tablet 1000 MG PO (02:49)
[2018-09-16 03:00] VITALS: BP 104/55; PULSE 114; RESP 16; TEMP 37.7; O2SAT 96
[2018-09-16] MEDS: Cefazolin 2 GM in 0.9% Normal Saline 100 ML IV ×2 (05:36→12:27)
[2018-09-16 06:04] VITALS: PULSE 98; TEMP 37.4
[2018-09-16 07:07] LABS: Absolute Lymphocyte Count 0.76 X10^3/ul (0.83-4.51); Absolute Neutrophil Count 10.2 X10^3/uL (2.0-7.7); Basophil# 0.01 X10^3/uL; Basophil% 0.1 % (0-1); Hematocrit 31.5 % (37-47); Hemoglobin 10.1 g/dl (12.0-15.0); Lymphocyte # 0.76 X10^3/ul (4.0); Lymphocyte % 6.7 % (19-41); Mean Corp Hgb Conc 32.1 g/gl (32-36); Mean Corpuscular Hgb 28.8 pg (27.0-32.0); Mean Corpuscular Volume 89.7 fL (81-99); Mean Platelet Vol. 11.7 fl (6.2-12.0); Monocyte# 0.25 X10^3/uL; Monocyte% 2.2 % (0-10); Neutrophil # 10.24 X10^3/uL (2.7-7.7); Platelet Count 229 K/mm3 (150-450); RBC Distribution Width CV 13.6 % (11.6-14.6); RBC Distribution Width SD 43.4 fl (35.1-43.9); Red Blood Count 3.51 M/mm3 (4.2-5.4); White Blood Count 11.4 K/mm3 (4.4-11.0)
[2018-09-16 07:08] LABS: Differential Indicated SCAN CRITERIA MET; POSITIVE COUNT NO; POSITIVE DIFFERENTIAL NO; POSITIVE MORPHOLOGY YES
[2018-09-16 07:13] LABS: Anion Gap 8 (5-15); BUN 6 mg/dL (7-18); BUN/Creat Ratio 8.5 RATIO (10-20); Calcium,Total 7.7 mg/dL (8.5-10.1); Chloride 107 mmol/L (98-107); Creatinine, Serum 0.71 mg/dL (0.55-1.02); EST Glomerular Filtration Rate 108 mL/min (>60); Est Glom Filt Rate - Afr Amer 130 mL/min (>60); Estimated Creatinine Clearance 123.25 ml/min; Glucose 99 mg/dL (74-106); Potassium 3.2 mmol/L (3.5-5.1); Sodium Level 141 mmol/L (136-145)
[2018-09-16 07:42] LABS: Differential Comment SCANNED
--- NOTE | 2018-09-16 08:19 | PN.OBGYN_ITS ---
Patient Problems: Active and Suspected Problems (Last Reviewed 09/06/18 @ 09:54 by Ne Trejo) Mastitis (Acute) UTI (urinary tract infection) (Acute) Subjective: feeling better, no CP SOB N V, tolerating po. decreased pain and less achy - Physical Exam General: Alert, Oriented x3 Lungs: - - right breast no abscess erythema decreasing Cardiovascular: Tachycardic Vital Signs Temp Pulse Resp BP Pulse Ox 99.4 F H 98 16 104/55 L 96 09/16/18 06:04 09/16/18 06:04 09/16/18 03:00 09/16/18 03:00 09/16/18 03:00 Oxygen Delivery Method Room Air Weight: 168 lb 8 oz Body Mass Index (BMI) 25.6 Intake and Output for Last 24 Hours 09/14/18 09/15/18 09/16/18 23:59 23:59 23:59 Intake Total 1125 / 1125 Balance 1125 / 1125 Laboratory Tests Past 24 Hrs 09/15/18 09/15/18 09/15/18 19:26 19:26 19:46 WBC 18.3 H RBC 3.87 L Hgb 11.2 L Hct 34.5 L MCV 89.1 MCH 28.9 MCHC 32.5 RDW 13.3 RDW Differential 42.5 Plt Count 265 MPV 11.5 Immature Gran % (Auto) 0.400 Neut % (Auto) 91.8 H Lymph % (Auto) 3.2 L [place] % (Auto) 4.5 Eos % (Auto) 0.0 Baso % (Auto) 0.1 Absolute Neuts (auto) 16.8 H Absolute Lymphs (auto) 0.59 L Total Counted Not Reportable Differential Comment SCANNED PT INR APTT Sodium 134 L Potassium 3.2 L Chloride 102 Carbon Dioxide 23.0 Anion Gap 9 BUN 7 Creatinine 0.75 Estim Creat Clear Calc 116.68 Est GFR (MDRD) Af Amer 123 Est GFR (MDRD) Non-Af 102 BUN/Creatinine Ratio 9.4 L Glucose 107 H Lactic Acid 2.1 H Calcium 8.1 L Total Bilirubin 0.40 AST 16 ALT 19 Alkaline Phosphatase 120 H Total Protein 6.9 Albumin 3.0 L Globulin 3.9 Albumin/Globulin Ratio 0.8 L Urine Color Urine Clarity Urine pH Ur Specific [place] Urine Protein Urine Glucose (UA) Urine Ketones Urine Occult Blood Urine Nitrite Urine Bilirubin Urine Urobilinogen Ur Leukocyte Esterase Urine RBC Urine WBC Ur Squamous Epith Cells Urine Bacteria Urine Mucus 09/15/18 09/15/18 09/15/18 22:00 22:38 23:59 WBC RBC Hgb Hct MCV MCH MCHC RDW RDW Differential Plt Count MPV Immature Gran % (Auto) Neut % (Auto) Lymph % (Auto) [place] % (Auto) Eos % (Auto) Baso % (Auto) Absolute Neuts (auto) Absolute Lymphs (auto) Total Counted Differential Comment PT 15.0 H INR 1.2 APTT 31.1 Sodium Potassium Chloride Carbon Dioxide Anion Gap BUN Creatinine Estim Creat Clear Calc Est GFR (MDRD) Af Amer Est GFR (MDRD) Non-Af BUN/Creatinine Ratio Glucose Lactic Acid 1.1 Calcium Total Bilirubin AST ALT Alkaline Phosphatase Total Protein Albumin Globulin Albumin/Globulin Ratio Urine Color Yellow Urine Clarity Sl. Cloudy Urine pH 6.0 Ur Specific [place] 1.010 Urine Protein 30 H Urine Glucose (UA) Normal Urine Ketones 5 H Urine Occult Blood 250 H Urine Nitrite Positive H Urine Bilirubin Negative Urine Urobilinogen Normal Ur Leukocyte Esterase 500 H Urine RBC 0-5 SEEN Urine WBC 10-25 SEEN Ur Squamous Epith Cells 0-5 SEEN Urine Bacteria 2+ Urine Mucus RARE 09/16/18 09/16/18 06:10 06:10 WBC 11.4 H RBC 3.51 L Hgb 10.1 L Hct 31.5 L MCV 89.7 MCH 28.8 MCHC 32.1 RDW 13.6 RDW Differential 43.4 Plt Count 229 MPV 11.7 Immature Gran % (Auto) 1.000 H Neut % (Auto) 90.0 H Lymph % (Auto) 6.7 L [place] % (Auto) 2.2 Eos % (Auto) 0.0 Baso % (Auto) 0.1 Absolute Neuts (auto) 10.2 H Absolute Lymphs (auto) 0.76 L Total Counted Not Reportable Differential Comment SCANNED PT INR APTT Sodium 141 Potassium 3.2 L Chloride 107 Carbon Dioxide 26.0 Anion Gap 8 BUN 6 L Creatinine 0.71 Estim Creat Clear Calc 123.25 Est GFR (MDRD) Af Amer 130 Est GFR (MDRD) Non-Af 108 BUN/Creatinine Ratio 8.5 L Glucose 99 Lactic Acid Calcium 7.7 L Total Bilirubin AST ALT Alkaline Phosphatase Total Protein Albumin Globulin Albumin/Globulin Ratio Urine Color Urine Clarity Urine pH Ur Specific [place] Urine Protein Urine Glucose (UA) Urine Ketones Urine Occult Blood Urine Nitrite Urine Bilirubin Urine Urobilinogen Ur Leukocyte Esterase Urine RBC Urine WBC Ur Squamous Epith Cells Urine Bacteria Urine Mucus Medical Necessity - Tobacco Use Smoking Status: Former smoker Assessment/Plan All Active Problems (Last Reviewed 09/06/18 @ 09:54 by Ne Trejo) Oligohydramnios (Acute) Mastitis (Acute) UTI (urinary tract infection) (Acute) Anemia affecting (Acute) Abnormal glucose affecting (Acute) (Acute) UTI in (Acute) Normal (Acute) Thyromegaly (Acute) PCOS (polycystic ovarian syndrome) (Acute) 23-year-old 1 week presents with sepsis secondary to UTI mastitis 1. Mastitis with sepsis?lactate already within normal limits, vital signs improved with IV fluids. Last elevated temp was 100.4 at 10:00. Patient already feeling better and pain controlled. Continue 24 hours of IV Ancef and switch to oral Keflex. Culture sent. 2. UTI?urine culture sent, 24 hours of IV Ancef and then oral Keflex. 3. Hypokalemia?replace with K-Dur 4. Continue breast-feeding, patient pumping
[2018-09-16 09:00] VITALS: BP 101/59; PULSE 138; RESP 18; TEMP 38.4; O2SAT 96
[2018-09-16] MEDS: Potassium Chloride 10mEq/100mL 10 MEQ/100 ML IV.SOLN. 100 MEQ IV BOLUS ×4 (09:26→15:54)
[2018-09-16] MEDS: Enoxaparin 40 MG/0.4 ML Syringe SC (09:26)
[2018-09-16] MEDS: Acetaminophen 325 MG Tablet 650 MG PO ×2 (09:55→17:19)
--- NOTE | 2018-09-16 10:14 | PCM.CONS.B ---
Problem List (1) Mastitis Status: Acute (2) UTI (urinary tract infection) Status: Acute (3) Abnormal glucose affecting Status: Acute Comment: normal 3 hr GTT (4) Anemia affecting Status: Acute Qualifiers: Comment: iron (5) Normal Status: Acute Qualifiers: Comment: PRR CIRO 09/03/18 boy Price Ibrahima (6) Oligohydramnios Status: Acute (7) PCOS (polycystic ovarian syndrome) Status: Acute Comment: clomid (8) Status: Acute Qualifiers: Comment: genetic,carrier screening declined.AFP negative.MFM anatomy US normal (9) Thyromegaly Status: Acute Comment: enlarged right gland, nl labs (10) UTI in Status: Acute Qualifiers: Comment: 02/02/18 E Coli-Rx ampicillin. Repeat culture negative - Consult Date of Consult: 09/16/[address] Samantha Serra Day #1 Ancef The patient is a 23-year-old female who is 9 days who was admitted to the hospital by Dr. Sammy Nolan with severe mastitis and urinary tract infection. Vital signs at admission to the hospital were temperature 100.9, pulse rate 136, blood pressure 86/53, respiratory rate 18 and she was 95% saturated on room air. White blood cell count was elevated at 18.3 with a left shift. Hemoglobin was 11.2 and platelet count was within normal limits. Sodium was low at 134 and the potassium was low at 3.2. BUN was 7 with a creatinine of 0.75. Lactic acid was elevated at 2.1. LFTs are unremarkable with the exception of a mildly increased alkaline phosphatase at 120 which is likely secondary to infection. A clean catch urine showed positive nitrites and 10-25 WBCs with 0-5 epithelial cells and 2+ bacteria. Chest x-ray showed no infiltrates. She was admitted to the hospital and started on 2 g of Ancef every 6 hours. Denies a hx of staph infections in the past. She was not on antibiotics prior to admission. She admits to having fevers, shaking chills, sweats and a red, painful swollen right breast. She denies cough, shortness of breath, nausea, vomiting, abdominal pain. She is having pain in the right axilla. Family history-mother and father are both alive and have no significant medical disease. 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 PHYSICAL EXAM: GENERAL: alert, oriented X 3, Cooperative, NAD, pumping when I entered the room. Has had decreased output from the right breast. ORAL: moist mucosa, no mucosal lesions NECK: No JVD, supple, trachea midline, no cervical or supraclavicular nodes LUNGS: CTA, symmetric chest expansion HEART: Regular with increased resting heart rate, Normal S1 and S2, no rub, no gallop ABDOMEN: soft, NT, ND, BS present, no guarding with palpation EXTREMITIES: no edema, no cyanosis, no calf tenderness SKIN: No rashes, no breakdown NEUROLOGIC: no focal neurologic deficits PSYCH: appropriate, normal affect, pleasant Right breast - swollen, entire breast is erythematous, painful to palpate, firm in the inferior quadrants/dependent, no focal areas of fluctuance, no guarding with palpation, + increased warmth to touch. Impressions 1. Sepsis secondary to mastitis right breast in a patient who is 9 days and breast-feeding. Since one of the more common causes of mastitis is MRSA and she was recently in the hospital will change the antibiotics to Vanco and Rocephin until cultures are resulted. Will send a culture of the milk from the right breast. She will continue to pump and empty the R breast regularly. Motrin 600 mg TID for pain and inflammation and to control fevers/shaking chills until the antibiotics start to work. If she develops a localized area of fluctuance or pain will obtain and US of the right breast. 2. UTI - doubt - she is asymptomatic and she is still having bloody DC from the vagina. It was a clean catch. Urine culture is pending......Rocephin will cover. Thank you for your confidence in the hospitalist service and we will continue to follow along. Discussed the plan for treatment with Dr. Lona Freeman. - Reason for Consult Sepsis secondary to mastitis and UTI Code Visit Inpatient E&M: 55557 Subs Hosp L3
[2018-09-16 11:00] VITALS: BP 94/61; PULSE 110; RESP 16; TEMP 37.7; O2SAT 98
[2018-09-16 15:50] LABS: Potassium 3.2 mmol/L (3.5-5.1)
[2018-09-16 17:00] VITALS: BP 123/81; PULSE 120; RESP 20; TEMP 39.4; O2SAT 97
--- NOTE | 2018-09-16 17:27 | NURSING ---
1720 Dr Diana returned call, informed of vss and temp, Tylenol given as scheduled. will monitor. new orders to follow. Ashley Husain RN
--- NOTE | 2018-09-16 17:29 | NURSING ---
171 betty Dubon [employer] called for status update on pt, informed of VSS and Tylenol to be given. Ashley Husain RN
[2018-09-16] MEDS: Ibuprofen 400 MG Tablet PO (17:48)
[2018-09-16] MEDS: Ceftriaxone 1 GM/50 ML BAG IV (17:51)
[2018-09-16 18:45] VITALS: BP 104/70; PULSE 100; RESP 20; TEMP 37.6; O2SAT 95
--- NOTE | 2018-09-16 18:48 | PCM.RX.CS ---
Consult Pharmacy has been consulted to manage selected antiobiotic: Vancomycin Type of Consult: New start Suspected Infection: Sepsis, Other Labs: Sodium 141 mmol/L (136-145) 09/16/18 06:10 Potassium 3.2 mmol/L (3.5-5.1) L 09/16/18 06:44 Chloride 107 mmol/L (98-107) 09/16/18 06:10 Carbon Dioxide 26.0 mmol/L (21.0-32.0) 09/16/18 06:10 Anion Gap 8 (5-15) 09/16/18 06:10 BUN 6 mg/dL (7-18) L 09/16/18 06:10 Creatinine 0.71 mg/dL (0.55-1.02) 09/16/18 06:10 Est GFR (MDRD) Af Amer 130 mL/min (>60) 09/16/18 06:10 Est GFR (MDRD) Non-Af 108 mL/min (>60) 09/16/18 06:10 BUN/Creatinine Ratio 8.5 RATIO (10-20) L 09/16/18 06:10 Glucose 99 mg/dL (74-106) 09/16/18 06:10 Microbiology: Microbiology 09/16/18 10:30 Fluid - Other Gram Stain - Final 09/15/18 22:00 Urine, Clean Catch Urine Culture - Preliminary Presumptive E. coli Weight used for dosin kg Estimated Creatinine Clearance: 123 ML/MIN Goal Trough: 15-20 mcg/mL Pharmacy Plan for Drug Dosing: Give initial dose of 1250mg IV x1, then continue with 1000mg IV q8h (per [facility] Pharmacist-Managed Vancomycin Dosing Protocol). Obtain a trough before the 4th dose. Pharmacy Service will continue to monitor and adjust dosing as required. Follow-Up Labs: Trough Vancomycin Labs to be done on [date and time ordered]: 09/17/18 18:30
--- NOTE | 2018-09-16 18:52 | PHA.PHARE_ITS ---
Consult Pharmacy has been consulted to manage selected antiobiotic: Vancomycin Type of Consult: New start Suspected Infection: Sepsis, Other Labs: Sodium 141 mmol/L (136-145) 09/16/18 06:10 Potassium 3.2 mmol/L (3.5-5.1) L 09/16/18 06:44 Chloride 107 mmol/L (98-107) 09/16/18 06:10 Carbon Dioxide 26.0 mmol/L (21.0-32.0) 09/16/18 06:10 Anion Gap 8 (5-15) 09/16/18 06:10 BUN 6 mg/dL (7-18) L 09/16/18 06:10 Creatinine 0.71 mg/dL (0.55-1.02) 09/16/18 06:10 Est GFR (MDRD) Af Amer 130 mL/min (>60) 09/16/18 06:10 Est GFR (MDRD) Non-Af 108 mL/min (>60) 09/16/18 06:10 BUN/Creatinine Ratio 8.5 RATIO (10-20) L 09/16/18 06:10 Glucose 99 mg/dL (74-106) 09/16/18 06:10 Microbiology: Microbiology 09/16/18 10:30 Fluid - Other Gram Stain - Final 09/15/18 22:00 Urine, Clean Catch Urine Culture - Preliminary Presumptive E. coli Weight used for dosin kg Estimated Creatinine Clearance: 123 ML/MIN Goal Trough: 15-20 mcg/mL Pharmacy Plan for Drug Dosing: Give initial dose of 1250mg IV x1, then continue with 1000mg IV q8h (per [facility] Pharmacist-Managed Vancomycin Dosing Protocol). Obtain a trough before the 4th dose. Pharmacy Service will continue to monitor and adjust dosing as required. Follow-Up Labs: Trough Vancomycin Labs to be done on [date and time ordered]: 09/17/18 18:30
[2018-09-16] MEDS: Ibuprofen 600 MG Tablet PO (21:55)
[2018-09-17 00:45] VITALS: BP 94/59; PULSE 95; RESP 18; TEMP 36.7; O2SAT 97
[2018-09-17] MEDS: Vancomycin IV 1,000 MG/200 ML BAG 200 MG IV ×3 (02:32→18:04)
[2018-09-17 06:05] VITALS: BP 100/66; PULSE 98; RESP 18; TEMP 37; O2SAT 97
[2018-09-17] MEDS: Ibuprofen 600 MG Tablet PO ×2 (06:07→14:44)
[2018-09-17 07:03] LABS: Absolute Lymphocyte Count 0.33 X10^3/ul (0.83-4.51); Absolute Neutrophil Count 3.7 X10^3/uL (2.0-7.7); Basophil# 0.01 X10^3/uL; Basophil% 0.2 % (0-1); Eosinophil# 0.01 X10^3/uL; Eosinophils% 0.2 % (0-5); Hematocrit 31.4 % (37-47); Hemoglobin 10.2 g/dl (12.0-15.0); Lymphocyte # 0.33 X10^3/ul (4.0); Lymphocyte % 7.9 % (19-41); Mean Corp Hgb Conc 32.5 g/gl (32-36); Mean Corpuscular Hgb 29.3 pg (27.0-32.0); Mean Corpuscular Volume 90.2 fL (81-99); Mean Platelet Vol. 10.9 fl (6.2-12.0); Monocyte# 0.11 X10^3/uL; Monocyte% 2.6 % (0-10); Neutrophil % 88.4 % (47-70); Platelet Count 204 K/mm3 (150-450); Red Blood Count 3.48 M/mm3 (4.2-5.4); White Blood Count 4.2 K/mm3 (4.4-11.0)
[2018-09-17 07:10] LABS: Differential Indicated SCAN CRITERIA MET; POSITIVE COUNT NO; POSITIVE DIFFERENTIAL YES; POSITIVE MORPHOLOGY NO
[2018-09-17 07:12] LABS: ALB/GLOB Ratio 0.6 RATIO (0.9-2.4); AST(SGOT) 29 U/L (15-37); Alanine Aminotransfer ALT/SGPT 23 U/L (13-56); Alkaline Phosphatase 107 U/L (45-117); Anion Gap 7 (5-15); BUN 6 mg/dL (7-18); BUN/Creat Ratio 10.6 RATIO (10-20); Chloride 110 mmol/L (98-107); Creatinine, Serum 0.56 mg/dL (0.55-1.02); EST Glomerular Filtration Rate 140 mL/min (>60); Est Glom Filt Rate - Afr Amer 170 mL/min (>60); Estimated Creatinine Clearance 156.26 ml/min; Globulin 3.6 g/dL (2.2-4.2); Glucose 69 mg/dL (74-106); Potassium 3.7 mmol/L (3.5-5.1); Protein, Total 5.6 g/dL (6.4-8.2); Sodium Level 139 mmol/L (136-145)
[2018-09-17 08:00] VITALS: BP 109/70; PULSE 99; RESP 14; TEMP 37.1; O2SAT 97
--- NOTE | 2018-09-17 08:01 | PCM.PROGNOTE ---
Patient Problems: Active and Suspected Problems (Last Reviewed 09/06/18 @ 09:54 by Ne Trejo) Mastitis (Acute) UTI (urinary tract infection) (Acute) Subjective: 23-year-old female who is day 10 admitted to the hospital with right breast mastitis and possible UTI. All events of the past 24 hours been reviewed. T-max is 103 ?F. Current temp is 98.6 and she is on every 8 hours Motrin and as needed Tylenol. Vital signs are stable. Fluid balance on 09/16/2018 is +6. All labs personally reviewed: White blood cell count today is down to 4.2 from 18.3 to admission. Hemoglobin is stable at 10.2 and platelets are within normal limits. She continues to have a left shift. LFTs are normal today. Gram stain on the breast milk shows 3+ white blood cells and rare gram-positive cocci. Culture is pending. Urine culture is presumptively positive for E. coli. Feeling better today. The R breast is tender but not really painful. Very little breast milk from the right breast. Less erythema no. No focal tenderness of the right breast. No N/V, sores in the mouth, rash, vaginal itching, dysuria. No right axillary pain today. Objective: PHYSICAL EXAM: GENERAL: alert, oriented X 3, Cooperative, NAD. Has had decreased output from the right breast. ORAL: moist mucosa, no mucosal lesions NECK: No JVD, supple, trachea midline, no cervical or supraclavicular nodes LUNGS: CTA, symmetric chest expansion HEART: Regular with increased resting heart rate, Normal S1 and S2, no rub, no gallop ABDOMEN: soft, NT, ND, BS present, no guarding with palpation EXTREMITIES: no edema, no cyanosis, no calf tenderness SKIN: No rashes, no breakdown NEUROLOGIC: no focal neurologic deficits PSYCH: appropriate, normal affect, pleasant Right breast - swollen, warmth to touch, less erythema today, no fluctuant areas, no focal tenderness - Physical Exam Vital Signs Temp Pulse Resp BP Pulse Ox 98.6 F 98 18 100/66 97 09/17/18 06:05 09/17/18 06:05 09/17/18 06:05 09/17/18 06:05 09/17/18 06:05 Oxygen Delivery Method Room Air Weight: 168 lb 8 oz Body Mass Index (BMI) 25.6 Intake and Output for Last 24 Hours 09/15/18 09/16/18 09/17/18 23:59 23:59 23:59 Intake Total 3076 / 3076 741 / 741 Output Total 1000 / 1000 900 / 900 Balance 2075 / 2075 -159 / -159 Microbiology Past 72 Hours 09/16/18 10:30 Gram Stain - Final Fluid - Other 09/15/18 22:00 Urine Culture - Preliminary Urine, Clean Catch Presumptive E. coli Laboratory Tests Past 24 Hrs 09/16/18 09/17/18 09/17/18 06:44 06:44 06:44 WBC 4.2 L RBC 3.48 L Hgb 10.2 L Hct 31.4 L MCV 90.2 MCH 29.3 MCHC 32.5 RDW 14.0 RDW Differential 46.0 H Plt Count 204 MPV 10.9 Immature Gran % (Auto) 0.700 Neut % (Auto) 88.4 H Lymph % (Auto) 7.9 L [place] % (Auto) 2.6 Eos % (Auto) 0.2 Baso % (Auto) 0.2 Absolute Neuts (auto) 3.7 Absolute Lymphs (auto) 0.33 L Total Counted Not Reportable Sodium 139 Potassium 3.2 L 3.7 Chloride 110 H Carbon Dioxide 22.0 Anion Gap 7 BUN 6 L Creatinine 0.56 Estim Creat Clear Calc 156.26 Est GFR (MDRD) Af Amer 170 Est GFR (MDRD) Non-Af 140 BUN/Creatinine Ratio 10.6 Glucose 69 L Calcium 8.0 L Total Bilirubin 0.30 AST 29 ALT 23 Alkaline Phosphatase 107 Total Protein 5.6 L Albumin 2.0 L Globulin 3.6 Albumin/Globulin Ratio 0.6 L Medical Necessity - Tobacco Use Smoking Status: Former smoker Assessment/Plan All Active Problems (Last Reviewed 09/06/18 @ 09:54 by Ne Trejo) Oligohydramnios (Acute) Mastitis (Acute) UTI (urinary tract infection) (Acute) Anemia affecting (Acute) Abnormal glucose affecting (Acute) (Acute) UTI in (Acute) Normal (Acute) Thyromegaly (Acute) PCOS (polycystic ovarian syndrome) (Acute) Impressions 1. Sepsis secondary to mastitis right breast in a patient who is 9 days and breast-feeding. Since one of the more common causes of mastitis is MRSA and she was recently in the hospital will change the antibiotics to Vanco and Rocephin until cultures are resulted. Will send a culture of the milk from the right breast. She will continue to pump and empty the R breast regularly. Motrin 600 mg TID for pain and inflammation and to control fevers/shaking chills until the antibiotics start to work. If she develops a localized area of fluctuance or pain will obtain and US of the right breast. 2. UTI - doubt - she is asymptomatic and she is still having bloody DC from the vagina. It was a clean catch. Urine culture is pending......Rocephin will cover. continue the Vanco and DC the Rocephin. Warm compresses to the R breast D/W Dr. Joe Freeman and she would like to keep the pt in the hospital at least 1 more day. Hopefully the results of the culture of the R breast milk will be back by then. If she has MRSA will go home with Clindamycin.......can not use Bactrim if breast feeding infants less than 1 month old Code Visit Inpatient E&M: 38239 Subs Hosp L2
--- NOTE | 2018-09-17 09:06 | PCM.PN.OB ---
Patient Problems: Active and Suspected Problems (Last Reviewed 09/06/18 @ 09:54 by Ne Trejo) Mastitis (Acute) UTI (urinary tract infection) (Acute) Subjective: Doing better this AM. Afebrile. States breast feels better. Eager for discharge. - Physical Exam General: Alert, Oriented x3 - Right breast firm, erythematous, significant edema. First exam per this provider, patient states has improved. Vital Signs Temp Pulse Resp BP Pulse Ox 98.7 F 99 14 109/70 97 09/17/18 08:00 09/17/18 08:00 09/17/18 08:00 09/17/18 08:00 09/17/18 08:00 Oxygen Delivery Method Room Air Weight: 168 lb 8 oz Body Mass Index (BMI) 25.6 Intake and Output for Last 24 Hours 09/15/18 09/16/18 09/17/18 23:59 23:59 23:59 Intake Total 3076 / 3076 741 / 741 Output Total 1000 / 1000 900 / 900 Balance 2076 / 2076 -159 / -159 Microbiology Past 72 Hours 09/15/18 22:00 Urine Culture - Final Urine, Clean Catch Presumptive E. coli 09/16/18 10:30 Gram Stain - Final Fluid - Other Laboratory Tests Past 24 Hrs 09/16/18 09/17/18 09/17/18 06:44 06:44 06:44 WBC 4.2 L RBC 3.48 L Hgb 10.2 L Hct 31.4 L MCV 90.2 MCH 29.3 MCHC 32.5 RDW 14.0 RDW Differential 46.0 H Plt Count 204 MPV 10.9 Immature Gran % (Auto) 0.700 Neut % (Auto) 88.4 H Lymph % (Auto) 7.9 L [place] % (Auto) 2.6 Eos % (Auto) 0.2 Baso % (Auto) 0.2 Absolute Neuts (auto) 3.7 Absolute Lymphs (auto) 0.33 L Total Counted Not Reportable Sodium 139 Potassium 3.2 L 3.7 Chloride 110 H Carbon Dioxide 22.0 Anion Gap 7 BUN 6 L Creatinine 0.56 Estim Creat Clear Calc 156.26 Est GFR (MDRD) Af Amer 170 Est GFR (MDRD) Non-Af 140 BUN/Creatinine Ratio 10.6 Glucose 69 L Calcium 8.0 L Total Bilirubin 0.30 AST 29 ALT 23 Alkaline Phosphatase 107 Total Protein 5.6 L Albumin 2.0 L Globulin 3.6 Albumin/Globulin Ratio 0.6 L Medical Necessity - Tobacco Use Smoking Status: Former smoker Assessment/Plan All Active Problems (Last Reviewed 09/06/18 @ 09:54 by Ne Trejo) Oligohydramnios (Acute) Mastitis (Acute) UTI (urinary tract infection) (Acute) Anemia affecting (Acute) Abnormal glucose affecting (Acute) (Acute) UTI in (Acute) Normal (Acute) Thyromegaly (Acute) PCOS (polycystic ovarian syndrome) (Acute) Stable this am. Patient feels much improved. Will defer management for continuation of care with hospitalist.
--- NOTE | 2018-09-17 09:30 | PCM.PROGNOTE ---
Patient Problems: Active and Suspected Problems (Last Reviewed 09/06/18 @ 09:54 by Ne Trejo) Mastitis (Acute) UTI (urinary tract infection) (Acute) Subjective: 23 YO female who is 10 days post admitted with mastitis and suspected UTI. she has no urinary urgency, frequency or dysuria. Started on Vanco on 09/16/18. Initially on Ancef and having temps to 103 with shaking chills. MRSA is a frequent cause of mastitis. Urine culture clean Catch with E. Coli and I suspect this is a contaminant. She is having bloody DC from the vagina since the delivery. Denies - Physical Exam Vital Signs Temp Pulse Resp BP Pulse Ox 98.7 F 99 14 109/70 97 09/17/18 08:00 09/17/18 08:00 09/17/18 08:00 09/17/18 08:00 09/17/18 08:00 Oxygen Delivery Method Room Air Weight: 168 lb 8 oz Body Mass Index (BMI) 25.6 Intake and Output for Last 24 Hours 09/15/18 09/16/18 09/17/18 23:59 23:59 23:59 Intake Total 3076 / 3076 741 / 741 Output Total 1000 / 1000 900 / 900 Balance 2076 / 2076 -159 / -159 Microbiology Past 72 Hours 09/15/18 22:00 Urine Culture - Final Urine, Clean Catch Presumptive E. coli 09/16/18 10:30 Gram Stain - Final Fluid - Other Laboratory Tests Past 24 Hrs 09/16/18 09/17/18 09/17/18 06:44 06:44 06:44 WBC 4.2 L RBC 3.48 L Hgb 10.2 L Hct 31.4 L MCV 90.2 MCH 29.3 MCHC 32.5 RDW 14.0 RDW Differential 46.0 H Plt Count 204 MPV 10.9 Immature Gran % (Auto) 0.700 Neut % (Auto) 88.4 H Lymph % (Auto) 7.9 L [place] % (Auto) 2.6 Eos % (Auto) 0.2 Baso % (Auto) 0.2 Absolute Neuts (auto) 3.7 Absolute Lymphs (auto) 0.33 L Total Counted Not Reportable Sodium 139 Potassium 3.2 L 3.7 Chloride 110 H Carbon Dioxide 22.0 Anion Gap 7 BUN 6 L Creatinine 0.56 Estim Creat Clear Calc 156.26 Est GFR (MDRD) Af Amer 170 Est GFR (MDRD) Non-Af 140 BUN/Creatinine Ratio 10.6 Glucose 69 L Calcium 8.0 L Total Bilirubin 0.30 AST 29 ALT 23 Alkaline Phosphatase 107 Total Protein 5.6 L Albumin 2.0 L Globulin 3.6 Albumin/Globulin Ratio 0.6 L Medical Necessity - Tobacco Use Smoking Status: Former smoker Assessment/Plan All Active Problems (Last Reviewed 09/06/18 @ 09:54 by Ne Trejo) Oligohydramnios (Acute) Mastitis (Acute) UTI (urinary tract infection) (Acute) Anemia affecting (Acute) Abnormal glucose affecting (Acute) (Acute) UTI in (Acute) Normal (Acute) Thyromegaly (Acute) PCOS (polycystic ovarian syndrome) (Acute)
[2018-09-17] MEDS: Enoxaparin 40 MG/0.4 ML Syringe SC (09:56)
[2018-09-17 14:00] VITALS: BP 97/63; PULSE 96; RESP 14; TEMP 36.8; O2SAT 96
[2018-09-17 17:08] VITALS: TEMP 36.8
--- NOTE | 2018-09-17 17:08 | NURSING ---
DR SEAMAN OKAY WITH PT GOING HOME TONIGHT IF STILL AFEBRILE FOR 24h. DR HWANG OKAY WELL. TEMP 98.[address]ICATION SENT TO DR HWANG FOR DC ORDERS. PT AWARE
[2018-09-17] MEDS: 0.9% NaCl Peripheral Flush Adult/Peds IV (18:04)
--- NOTE | 2018-09-17 18:29 | PCM.DC ---
- Discharge Diagnoses Current Active Problems: Current Active and Chronic Problems (Last Reviewed 09/06/18 @ 09:54 by Ne Trejo) Mastitis (Acute) UTI (urinary tract infection) (Acute) You will use the following diet at home:: No restrictions Your food should be the consistency of: Regular Your liquids should be the consistency of: Regular/Thin Discharge Activity: No Restrictions Call your doctor if you observe: Fever of 101 or Higher, Shortness of breath, Dizziness, Fainting spells, Swelling in the ankles, Chest pain, Calf discomfort, - - LOCALIZED PAIN AND SWELLING. INCREASING REDNESS Call your PCP if severe diarrhea ( > 5 stools a day), painful sores in the mouth, painful swallowing, rash or itching. Taking a probiotic such as Lactobacillus or Kefir can help with loose stools while taking antibiotics. Instructions: ED Breast Infec, Clindamycin Hydrochloride Oral capsule Additional Instructions: 1. Clindamycin is the antibiotic you will be taking and it sometimes causes diarrhea........I advise you to start a probiotic and take it twice a day. OR you can eat a carton of yogurt ev while you are on the antibiotic OR drink Kefir. 2. If the hot compresses are working and the breast milk flow is increasing I would continue with this every 4 hours while awake. It is important to keep the milk flowing to erradicate the bacteria from the breast. 3. the prelim on the culture of the mild is a Staph species. You can call Dr. Serra Tuesday or Tuesday for the final culture results. Pending Tests on Discharge: final Culture results on the R breast milk Allergies/Adverse Reactions: Allergies No Known Allergies Allergy (Verified 09/15/18 19:15) Medications to take at Discharge vitamin,calcium,wfzfmcxj-rkra-loslh acid tablet 1 tab PO QDAY 01/31/18 ferrous sulfate 325 mg (65 mg iron) tablet 325 mg PO DAILY tab 06/28/18 Acetaminophen [Tylenol Tablet] 650 mg PO Q6H PRN PRN tablet 09/17/18 Clindamycin [Cleocin] 300 mg PO TID #30 cap 09/17/18 Ibuprofen [Motrin] 600 mg PO Q8 tablet 09/17/18 The following prescriptions were given: Clindamycin [Cleocin] 300 mg PO TID #30 cap Primary Care Physician: Care Physician,No Primary [Primary Care Provider] - Test Results: Test results from this visit will be discussed in further detail at your follow-up appointment, if applicable. Please Follow Up With: Dr. Serra When: or Josefina Dubon - this week. CAll the office Tuesday for an appt Proposed Discharge Date: 09/17/18
--- NOTE | 2018-09-17 18:34 | DCINST_ITS ---
- Discharge Diagnoses Current Active Problems: Current Active and Chronic Problems (Last Reviewed 09/06/18 @ 09:54 by Ne Trejo) Mastitis (Acute) UTI (urinary tract infection) (Acute) You will use the following diet at home:: No restrictions Your food should be the consistency of: Regular Your liquids should be the consistency of: Regular/Thin Discharge Activity: No Restrictions Call your doctor if you observe: Fever of 101 or Higher, Shortness of breath, Dizziness, Fainting spells, Swelling in the ankles, Chest pain, Calf discomfort, - - LOCALIZED PAIN AND SWELLING. INCREASING REDNESS Call your PCP if severe diarrhea ( > 5 stools a day), painful sores in the mouth, painful swallowing, rash or itching. Taking a probiotic such as Lactobacillus or Kefir can help with loose stools while taking antibiotics. Instructions: ED Breast Infec, Clindamycin Hydrochloride Oral capsule Additional Instructions: 1. Clindamycin is the antibiotic you will be taking and it sometimes causes diarrhea........I advise you to start a probiotic and take it twice a day. OR you can eat a carton of yogurt ev while you are on the antibiotic OR drink Kefir. 2. If the hot compresses are working and the breast milk flow is increasing I would continue with this every 4 hours while awake. It is important to keep the milk flowing to erradicate the bacteria from the breast. 3. the prelim on the culture of the mild is a Staph species. You can call Dr. Serra Tuesday or Tuesday for the final culture results. Pending Tests on Discharge: final Culture results on the R breast milk Allergies/Adverse Reactions: Allergies No Known Allergies Allergy (Verified 09/15/18 19:15) Medications to take at Discharge vitamin,calcium,ikneozoq-fdfn-mkapl acid tablet 1 tab PO QDAY 01/31/18 ferrous sulfate 325 mg (65 mg iron) tablet 325 mg PO DAILY tab 06/28/18 Acetaminophen [Tylenol Tablet] 650 mg PO Q6H PRN PRN tablet 09/17/18 Clindamycin [Cleocin] 300 mg PO TID #30 cap 09/17/18 Ibuprofen [Motrin] 600 mg PO Q8 tablet 09/17/18 The following prescriptions were given: Clindamycin [Cleocin] 300 mg PO TID #30 cap Primary Care Physician: Care Physician,No Primary [Primary Care Provider] - Test Results: Test results from this visit will be discussed in further detail at your follow- up appointment, if applicable. Please Follow Up With: Dr. Serra When: or Josefina Dubon - this week. CAll the office Tuesday for an appt Proposed Discharge Date: 09/17/18
== END 2018-09-17 19:42 | disposition home or self-care (01) | DRG 776 ==
LOC: ED 21:13 → MS2 21:37
PROVIDERS: Internal Medicine; Admitting Provider Obstetrics & Gynecology; Emergency Provider Emergency Medicine; Referring Provider Obstetrics & Gynecology; Visit Provider Obstetrics & Gynecology
DX: O85 Puerperal sepsis (principal); R65.20 Severe sepsis without septic shock; O91.22 Nonpurulent mastitis associated with the puerperium; O99.285 Endocrine, nutritional and metabolic diseases complicating the puerperium; E87.6 Hypokalemia
CPT/HCPCS: 36415; 71045; 80048; 80053; 81001; 83605; 84132; 85025; 85610; 85730; 87040; 87070; 87075; 87077; 87086; 87088; 87186; 87205; 93005; 99283; J7030; J7040; J7050; J7120; A4216

== ENCOUNTER → 2018-10-26 18:20 | Outpatient (CLI) | payer OTHER, SELFPAY ==
[2018-10-26 16:29] VITALS: BMI 28.8
[2018-11-04 14:57] LABS: HPV APTIMA, High Risk Negative (Negative)
[2018-11-04 15:06] LABS: HPV Reflexed? YES, CHARGE PATIENT
== END ==
PROVIDERS: Referring Provider Obstetrics & Gynecology; Visit Provider Obstetrics & Gynecology
DX: Z12.4 Encounter for screening for malignant neoplasm of cervix (principal)
CPT/HCPCS: 87624; 88175; G0145

== ENCOUNTER → 2021-03-12 09:19 | Outpatient (CLI) | payer OTHER, SELFPAY ==
[2021-03-12 09:36] LABS: Absolute Lymphocyte Count 3.33 X10^3/uL (0.83-4.51); Absolute Neutrophil Count 3.5 X10^3/uL (2.0-7.7); Basophil# 0.03 X10^3/uL; Basophil% 0.4 % (0-1); Eosinophils% 1.3 % (0-5); Hematocrit 40.6 % (37-47); Hemoglobin 13.4 g/dL (12.0-15.0); Lymphocyte # 3.33 X10^3/ul (0.83-4.51); Lymphocyte % 44.3 % (19-41); Mean Corpuscular Hgb 31.3 pg (27.0-32.0); Mean Corpuscular Volume 94.9 fL (81-99); Mean Platelet Vol. 10.9 fl (6.2-12.0); Monocyte# 0.58 X10^3/uL; Monocyte% 7.7 % (0-10); NRBC Flagged by Analyzer 0 % (0-5); Neutrophil # 3.46 X10^3/uL (2.7-7.7); Platelet Count 251 K/mm3 (150-450); RBC Distribution Width CV 12.6 % (11.6-14.6); RBC Distribution Width SD 43.6 fl (35.1-43.9); Red Blood Count 4.28 M/mm3 (4.2-5.4); White Blood Count 7.5 K/mm3 (4.4-11.0)
[2021-03-12 10:10] LABS: Thyroid Stim Hormone (TSH) 1.67 uIU/mL (0.358-3.74)
== END ==
LOC: PAVLAB 09:20
PROVIDERS: Referring Provider Nurse Practitioner Women's Health; Visit Provider Nurse Practitioner Women's Health
DX: D64.9 Anemia, unspecified (principal); E28.2 Polycystic ovarian syndrome; Z13.29 Encounter for screening for other suspected endocrine disorder
CPT/HCPCS: 36415; 84443; 85025

== ENCOUNTER → 2021-03-24 09:23 | Outpatient (CLI) | payer OTHER, SELFPAY ==
--- NOTE | 2021-03-24 09:29 | BI_ITS ---
MAMMOGRAPHY - BILATERAL DIAGNOSTIC REASON FOR EXAM: Female, 25 years old. left breast mass PERTINENT HISTORY: Non-contributory. TECHNIQUE: Digital examination. Mediolateral oblique (MLO) and craniocaudad (CC) views of both breasts were obtained. CAD: COMPARISON: None. FINDINGS: Breast Composition: The breasts are extremely dense, which lowers the sensitivity of mammography. There are no dominant masses or suspicious calcifications. No other significant abnormalities are identified. BI/DIAG MAMM W/CAD, BILAT IMPRESSION: Stable bilateral diagnostic mammogram. Ultrasound of the palpable abnormality in the left breast will be obtained. ASSESSMENT CATEGORY: BIRADS Category 0: Incomplete. Need additional imaging evaluation. A letter regarding these results will be sent to the patient by the facility within 30 days. FOLLOW UP RECOMMENDATION: Ultrasound Recommended. (I) Approximately 10% of breast cancers are not detected by mammography. A normal mammogram should not delay biopsy of a clinically suspicious abnormality. Electronically Signed: Charlie Taveras MD at 11:49 EDT Tel , Service support ,
--- NOTE | 2021-03-24 09:29 | US_ITS ---
STUDY: ULTRASOUND BREAST - LEFT REASON FOR EXAM: Female, 25 years old. Palpable mass TECHNIQUE: Axial and longitudinal images of the LEFT breast were performed with a high resolution ultrasound transducer. # OF IMAGES: 14 COMPARISON: Diagnostic mammogram earlier today FINDINGS: LEFT Breast: Heterogeneous background echotexture. Multiple longitudinal and transverse ultrasound images of the upper outer quadrant left breast fail to demonstrate a discrete solid or cystic mass most consistent with normal breast parenchyma.: US/Breast Limited Unilateral IMPRESSION: Normal diagnostic mammogram and left breast ultrasound. However, biopsy of any palpable abnormality should be performed if clinically indicated. ASSESSMENT CATEGORY: BIRADS Category 1: Negative. A letter regarding these results will be sent to the patient by the facility within 30 days. Electronically Signed: Charlie Taveras MD at 11:50 EDT Tel , Service support ,
== END ==
LOC: OPBI 09:27
PROVIDERS: Visit Provider Nurse Practitioner Women's Health
DX: N63.20 Unspecified lump in the left breast, unspecified quadrant (principal)
CPT/HCPCS: 76642; 77062; 77066; G0279

== ENCOUNTER → 2021-06-02 14:57 | Outpatient (CLI) | payer OTHER, SELFPAY ==
[2021-06-02 15:21] LABS: Absolute Lymphocyte Count 2.47 X10^3/uL (0.83-4.51); Absolute Neutrophil Count 6.3 X10^3/uL (2.0-7.7); Basophil# 0.03 X10^3/uL; Basophil% 0.3 % (0-1); Eosinophil# 0.03 X10^3/uL; Eosinophils% 0.3 % (0-5); Hematocrit 33.9 % (37-47); Hemoglobin 11.8 g/dL (12.0-15.0); Lymphocyte # 2.47 X10^3/ul (0.83-4.51); Lymphocyte % 26.4 % (19-41); Mean Corp Hgb Conc 34.8 g/dL (32-36); Mean Corpuscular Hgb 31.6 pg (27.0-32.0); Mean Corpuscular Volume 90.6 fL (81-99); Mean Platelet Vol. 10.6 fl (6.2-12.0); Monocyte# 0.48 X10^3/uL; Monocyte% 5.1 % (0-10); NRBC Flagged by Analyzer 0 % (0-5); Neutrophil # 6.29 X10^3/uL (2.7-7.7); Neutrophil % 67.5 % (47-70); Platelet Count 336 K/mm3 (150-450); RBC Distribution Width CV 11.9 % (11.6-14.6); RBC Distribution Width SD 39.6 fl (35.1-43.9); Red Blood Count 3.74 M/mm3 (4.2-5.4); White Blood Count 9.3 K/mm3 (4.4-11.0)
[2021-06-02 16:45] LABS: HIV - WCH Non-Reactive (Nonreactive); Hepatitis B Surface Antigen Non-Reactive (Nonreactive); Hepatitis C Antibody Non-Reactive (Nonreactive); Rubella IgG Reactive (Nonreactive); Syphilis Antibodies Non-reactive
[2021-06-02 17:28] LABS: Amphetamine Urine VISTA NEGATIVE (<1000 ng/mL); Barbiturate Urine VISTA NEGATIVE (< 200 ng/mL); Benzodiazepine Urine VISTA NEGATIVE (< 200 ng/mL); Cocaine Urine VISTA NEGATIVE (< 300 ng/mL); Ecstacy Urine VISTA NEGATIVE (< 500 ng/mL); Methadone Urine VISTA NEGATIVE (< 300 ng/mL); PCP Urine VISTA NEGATIVE (< 25 ng/mL); THC Urine VISTA NEGATIVE (< 50 ng/mL); Vista UDS pH Range 6
[2021-06-04 22:07] LABS: Chlamydia By Nucleic Acid AMP Negative (Negative)
[2021-06-05 08:08] LABS: Gonococcus By Nucleic Acid AMP Negative (Negative)
== END ==
PROVIDERS: Referring Provider Obstetrics & Gynecology; Visit Provider Obstetrics & Gynecology
DX: Z34.80 Encounter for supervision of other normal pregnancy, unspecified trimester (principal)
CPT/HCPCS: 36415; 80307; 85025; 86703; 86762; 86780; 86803; 86850; 86900; 86901; 87086; 87088; 87340; 87491; 87591

== ENCOUNTER → 2021-10-21 | Outpatient (CLI) | payer OTHER, SELFPAY ==
[2021-10-21 09:37] LABS: Absolute Lymphocyte Count 1.75 X10^3/uL (0.83-4.51); Absolute Neutrophil Count 6.2 X10^3/uL (2.0-7.7); Basophil# 0.02 X10^3/uL; Basophil% 0.2 % (0-1); Eosinophil# 0.06 X10^3/uL; Eosinophils% 0.7 % (0-5); Hematocrit 31.3 % (37-47); Hemoglobin 10.6 g/dL (12.0-15.0); Lymphocyte # 1.75 X10^3/ul (0.83-4.51); Lymphocyte % 20.5 % (19-41); Mean Corp Hgb Conc 33.9 g/dL (32-36); Mean Corpuscular Hgb 31.9 pg (27.0-32.0); Mean Corpuscular Volume 94.3 fL (81-99); Mean Platelet Vol. 11.1 fl (6.2-12.0); Monocyte# 0.46 X10^3/uL; Monocyte% 5.4 % (0-10); NRBC Flagged by Analyzer 0 % (0-5); Neutrophil # 6.17 X10^3/uL (2.7-7.7); Neutrophil % 72.4 % (47-70); Platelet Count 201 K/mm3 (150-450); RBC Distribution Width CV 12.4 % (11.6-14.6); RBC Distribution Width SD 42.9 fl (35.1-43.9); Red Blood Count 3.32 M/mm3 (4.2-5.4); White Blood Count 8.5 K/mm3 (4.4-11.0)
[2021-10-21 09:55] LABS: Glucose Challenge Gest 1H 50g 135 mg/dL (70-140)
== END | disposition home or self-care (01) ==
LOC: PAVLAB 09:18
PROVIDERS: Referring Provider Obstetrics & Gynecology; Visit Provider Obstetrics & Gynecology
DX: Z34.80 Encounter for supervision of other normal pregnancy, unspecified trimester (principal)
CPT/HCPCS: 36415; 82950; 85025

== ENCOUNTER → 2021-10-28 | Outpatient (CLI) | payer OTHER, SELFPAY ==
[2021-10-28 09:10] LABS: Glucose GTT-Gestation. Fasting 81 mg/dL (<105)
[2021-10-28 10:06] LABS: Glucose GTT-Gestational 1 Hr 182 mg/dL (<190)
[2021-10-28 11:54] LABS: Glucose GTT-Gestational 2 Hr 135 mg/dL (<165)
[2021-10-28 11:54] LABS: Glucose GTT-Gestational 3 Hr 158 L (<145)
== END | disposition home or self-care (01) ==
LOC: LAB 07:45
PROVIDERS: Referring Provider Nurse Practitioner Women's Health; Visit Provider Nurse Practitioner Women's Health
DX: O99.810 Abnormal glucose complicating pregnancy (principal); Z3A.00 Weeks of gestation of pregnancy not specified
CPT/HCPCS: 36415; 82951; 82952

== ENCOUNTER → 2021-11-13 | Outpatient (CLI) | payer OTHER, SELFPAY ==
--- NOTE | 2021-11-13 15:20 | US_ITS ---
STUDY: SECOND AND THIRD TRIMESTER OBSTETRICAL ULTRASOUND - LIMITED REASON FOR EXAM: Female, 26 years old 32w growth ultrasound LMP: PRIOR ULTRASOUND: None. TECHNIQUE: TECHNICAL QUALITY: Adequate. FINDINGS: There is a single intrauterine fetus. The fetus is in a cephalic presentation. There is demonstrated cardiac activity with a heart rate of 142 bpm. There is a normal amniotic fluid volume. The largest amniotic fluid pocket measures 4.34 cm. The amniotic fluid index (MICHELLE) is 13.65 cm. The placenta is anterior There are Grade 0 placental changes. The cervix measures 4.2 cm in length. BIOMETRY: BPD 7.8 cm: 31 weeks, 3 days HC: 29.07 cm: 32 weeks, 1 days AC: 28.1 cm: 32 weeks, 1 days FL: 6.34 cm: 32 weeks, 6 days Age by LMP: 32 weeks, 0 days. CIRO by LMP: 01/08/2022. age by prior US: Not available age by current US: 32 weeks, 1 days. CIRO by current US: 01/07/2022. Estimated weight: 1934 grams, +/- 282 grams US/OB Limited With Biometrics IMPRESSION: Single viable intrauterine gestation in cephalic presentation. Mean gestational age based on ultrasound parameters is 32 weeks 1 day. Electronically Signed: Sammy Rockwell MD, [place] at 9:25 EDT ,
== END | disposition home or self-care (01) ==
LOC: US 15:18
PROVIDERS: Referring Provider Nurse Practitioner Women's Health; Visit Provider Nurse Practitioner Women's Health
DX: O98.519 Other viral diseases complicating pregnancy, unspecified trimester (principal); U07.1 COVID-19; Z3A.00 Weeks of gestation of pregnancy not specified
CPT/HCPCS: 76816

== ENCOUNTER → 2021-11-19 | Outpatient (CLI) | payer OTHER, SELFPAY ==
[2021-11-19 12:06] LABS: Absolute Lymphocyte Count 1.74 X10^3/uL (0.83-4.51); Absolute Neutrophil Count 5.1 X10^3/uL (2.0-7.7); Basophil# 0.02 X10^3/uL; Basophil% 0.3 % (0-1); Eosinophil# 0.04 X10^3/uL; Eosinophils% 0.5 % (0-5); Hematocrit 30.7 % (37-47); Hemoglobin 10.4 g/dL (12.0-15.0); Lymphocyte # 1.74 X10^3/ul (0.83-4.51); Lymphocyte % 23.6 % (19-41); Mean Corp Hgb Conc 33.9 g/dL (32-36); Mean Corpuscular Hgb 32.4 pg (27.0-32.0); Mean Corpuscular Volume 95.6 fL (81-99); Monocyte% 5.4 % (0-10); NRBC Flagged by Analyzer 0 % (0-5); Neutrophil # 5.12 X10^3/uL (2.7-7.7); Neutrophil % 69.4 % (47-70); Platelet Count 186 K/mm3 (150-450); RBC Distribution Width CV 12.2 % (11.6-14.6); RBC Distribution Width SD 42.6 fl (35.1-43.9); Red Blood Count 3.21 M/mm3 (4.2-5.4); White Blood Count 7.4 K/mm3 (4.4-11.0)
== END | disposition home or self-care (01) ==
LOC: PAVLAB 11:48
PROVIDERS: Visit Provider Obstetrics & Gynecology
DX: O99.019 Anemia complicating pregnancy, unspecified trimester (principal); Z3A.00 Weeks of gestation of pregnancy not specified
CPT/HCPCS: 36415; 85025

== ENCOUNTER → 2021-12-11 | Outpatient (CLI) | payer OTHER, SELFPAY ==
--- NOTE | 2021-12-11 15:13 | US_ITS ---
STUDY: SECOND AND THIRD TRIMESTER OBSTETRICAL ULTRASOUND - LIMITED REASON FOR EXAM: Female, 26 years old growth at 36w LMP: 04/03/2021 PRIOR ULTRASOUND: 11/13/2021 TECHNIQUE: Transabdominal TECHNICAL QUALITY: Adequate. FINDINGS: There is a single intrauterine fetus. The fetus is in a cephalic presentation. There is demonstrated cardiac activity with a heart rate of 146 bpm. There is a normal amniotic fluid volume. The largest amniotic fluid pocket measures 4.2 cm. The amniotic fluid index (MICHELLE) is 13.6 cm. The placenta is anterior in location and is not low lying. There are Grade 2 placental changes. The cervix measures 4.0 cm cm in length. BIOMETRY: BPD: 8.6 cm: 34 weeks, 4 days HC: 33.3 cm: 38 weeks, 0 days AC: 32.3 cm: 36 weeks, 1 days FL: 7.1 cm: 36 weeks, 1 days Age by LMP: 36 weeks, 0 days. CIRO by LMP: 01/08/2021. age by current US: 36 weeks, 1 days. CIRO by current US: 01/07/2022. Estimated weight: 2838 grams, +/- 426 grams, 52 percentile. Gender: US/OB Limited With Biometrics IMPRESSION: Living intrauterine of 36 weeks 1 day as described above. Electronically Signed: Charlie Taveras MD at 16:34 EDT ,
== END | disposition home or self-care (01) ==
LOC: US 15:12
PROVIDERS: Referring Provider Nurse Practitioner Women's Health; Visit Provider Nurse Practitioner Women's Health
DX: O98.519 Other viral diseases complicating pregnancy, unspecified trimester (principal); U07.1 COVID-19; Z3A.00 Weeks of gestation of pregnancy not specified
CPT/HCPCS: 76816

== ENCOUNTER → 2021-12-17 | Outpatient (CLI) | payer OTHER, SELFPAY | END | disposition home or self-care (01) | LOC: LABSPEC 12:13 | PROVIDERS: Referring Provider Obstetrics & Gynecology; Visit Provider Obstetrics & Gynecology | DX: Z34.80 Encounter for supervision of other normal pregnancy, unspecified trimester (principal) | CPT/HCPCS: 87081 ==

== ENCOUNTER 2021-12-28 12:15 | Inpatient (IN) | payer OTHER, SELFPAY ==
[2021-12-28] VITALS (66 sets, daily range): BP systolic 105–138; BP diastolic 53–85; PULSE 99–151; TEMP 36.3–38.3; O2SAT 85–100; BMI 28.6
[2021-12-28] MEDS: Lactated Ringers 1,000 ML 50 ML IV ×2 (12:45→13:45)
[2021-12-28 12:58] LABS: Absolute Lymphocyte Count 1.29 X10^3/uL (0.83-4.51); Absolute Neutrophil Count 9.2 X10^3/uL (2.0-7.7); Basophil# 0.02 X10^3/uL; Basophil% 0.2 % (0-1); Eosinophil# 0.01 X10^3/uL; Eosinophils% 0.1 % (0-5); Hematocrit 29.3 % (37-47); Hemoglobin 9.9 g/dL (12.0-15.0); Lymphocyte # 1.29 X10^3/ul (0.83-4.51); Lymphocyte % 11.4 % (19-41); Mean Corp Hgb Conc 33.8 g/dL (32-36); Mean Corpuscular Hgb 30.7 pg (27.0-32.0); Mean Platelet Vol. 11.9 fl (6.2-12.0); Monocyte# 0.77 X10^3/uL; Monocyte% 6.8 % (0-10); NRBC Flagged by Analyzer 0 % (0-5); Neutrophil # 9.19 X10^3/uL (2.7-7.7); Neutrophil % 80.8 % (47-70); Platelet Count 168 K/mm3 (150-450); RBC Distribution Width SD 39.9 fl (35.1-43.9); Red Blood Count 3.22 M/mm3 (4.2-5.4); White Blood Count 11.4 K/mm3 (4.4-11.0)
[2021-12-28] MEDS: Oxytocin 30 units/NS 500 ml 30 UNITS/500 ML IV.SOLN IV (13:05)
[2021-12-28 13:21] LABS: Bedside Glucose 84 mg/dL (74-106)
--- NOTE | 2021-12-28 13:26 | HP.PCM_ITS ---
History and Physical MR#: [id number] Acct: [id number] Name:? MAGEN THOMSON Rep #: [id number] : 1995 ? ? Provider: Dr. Samantha Serra MD Age/Sex:? 26/F ? ? [place] [facility] [place]: Signed Intake Vital Signs ? 10/21/2208:45 12/28/2209:23 12/28/2209:23 Height 5 ft 8 in 5 ft 8 in 5 ft 8 in Weight: ? 189 lb 4 oz ? BMI ? 28.8 ? BP ? 116/76 ? Intake Visit Reasons:?38 WK OB Battery Container Tester Required: No Is patient in pain?: No Allergies No Known Allergies Allergy (Verified 12/28/21 10:23) Medications ferrous sulfate 325 mg (65 mg iron) tablet (Feosol) 325 mg PO DAILY 03/12/21 [History Confirmed 12/28/21] multivitamin no.47-iron fum 27 mg-folate no.1? 1 mg-dha 300 mg capsule (PNV-DHA) cap PO 05/20/21 [History Confirmed 12/28/21] famotidine 20 mg tablet (Pepcid) 20 mg PO BID 30 days #60 tabs 09/23/21 [Rx Confirmed 12/28/21] blood sugar diagnostic (Truetrack Test) #100 ea 10/28/21 [Rx Confirmed 12/28/21] blood-glucose meter (Truetrack Blood Glucose System) #1 ea 10/28/21 [Rx Confirmed 12/28/21] Last Menstral Period: 04/03/21 Zika: Zika virus screening: Negative : No PFSH PFSH Medical History? Gestational diabetes Infertility Left breast mass PCOS (polycystic ovarian syndrome) Thyromegaly Surgical History? H/O knee surgery History of foot surgery Family History? Grandmother Diabetes Social History? household members:? family current occupational status:? 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 Yes Smoking Status:? Former smoker alcohol intake:? never details:? social substance use type:? does not use caffeine:? Yes what type of physical activity do you participate in:? none seatbelt use:? always do you feel safe at home:? Yes additional social history:? - Ibrahima Pregancy History ? ? ? 4 ? Elective abortions ? ? ? 1 Hx Para ? ? ? 1 ? Spontaneous abortions ? ? ? 1 Hx # Term Pregnancies ? Ectopic pregnancies ? Hx # Pregnancies ? Multiple births ? # of living children ? ? ? 1 Past Pregnancies Del. Date Name GA/Weeks Outcome Route Bth Weight Infant Gen Labor Lgth Anesthesia Del Locatn Provider FOB 09/06/18 LOPEZ 40 live - full term 7lbs 3oz Male 1 0 hours epidural [facility] Delivery Date: 09/06/18? Last Updated by: Vanessa Rizvi ? ? ? SEVERE OLIGO ? ? ? HPI 38 WK OB Details: MAGEN THOMSON is a 26 year old who presents for routine OB visit. OB Visit CIRO Calculator ? Estimated Delivery Date Method Current WG Current Estimate 01/08/22 LMP (Certain) 38w 3d Other Estimates 01/09/22 Ultrasound #1 38w 2d Expected Delivery Route/Plan delivery by 40 Labor Preferences- CB/BF classes: no labor support person: Ibrahima labor intervention preferences: [] pain management options preferred: epidural cut cord/dad catch: cord : no PP control planned: discussed/nuvaring discussed possible routes of delivery and associated risks: [] special requests: [] Specific Issue/Plans Covid status: pos in , counseled regarding risk of covid in vs vaccination and declined vaccination Flu vaccine: given Tdap vaccine: given Rhogam: na LARC form signed: yes movement and labor precautions reviewed. Problem list reviewed and updated with the most current plan of care details and appropriate orders placed.? Relevant counseling for the gestational age provided. Continue routine care and follow up unless otherwise noted in visit notes/problem list details Initial Weight:?173 lb Date -?-?-?-?-?-?-?-?-?-?-?-?- EGA Weight BP Urine Prot -?-?-?-?-?-?-?-?-?-?-?-?- Glucose FHR FuHt Pres Dilation -?-?-?--?-?-?-?-?-?-?-?-?- Effaced St Visit Note 06/02/21-?-?-?-?-?-?-?-?-?-?-?-?- 8w 4d 177 lb(+4 lb) ? -?-?-?-?-?-?--?-?-?-?-?-?- ? 168 ? ? -?-?-?-?-?-?-?-?-?-?-?-?- ? ? SM- CRL cons with LMP SM- CRL 1.6cm cons with LMP 07/01/21-?-?-?-?-?-?-?-?-?-?-?-?- 12w 5d 173 lb(+0 oz) 120/80 Negative -?-?-?-?-?-?-?-?-?-?-?-?- Negative 150 ? ? -?-?-?-?-?-?--?-?-?-?-?-?- ? ? SM- no vb crmaping recovered from mild covid case 07/29/21-?-?-?-?-?-?-?-?-?-?-?-?- 16w 5d 177 lb 2 oz(+4 lb 2 oz) 120/80 Negative -?-?-?-?-?-?-?-?-?-?-?-?- Negative 152 ? ? -?-?-?-?-?-?-?-?-?-?-?-?- ? ? JV- no lof, vaginal bleeding, or cramping. taking baby asa. plan for growth scans, and consider 37-39 week fluid check due to h/o oligo (pt requests and is nervous about this) 08/25/21-?-?-?-?-?-?-?-?-?-?-?-?- 20w 4d 180 lb(+7 lb) 120/72 Negative -?-?-?-?-?-?-?-?-?-?-?-?- Negative 160 ? ? -?-?-?-?-?-?-?-?-?-?-?-?- ? ? SM- no vb lof good fm no reuglar ctx 09/23/21-?-?-?-?-?-?-?-?-?-?-?-?- 24w 5d 184 lb(+11 lb) 116/70 Negative -?-?-?-?-?-?-?-?-?-?-?-?- Negative 151 ? ? -?-?-?-?-?-?-?-?-?-?-?-?- ? ? JV- no lof, vaginal bleeding, or dec fm. pepcid for heart burn 10/21/21-?-?-?-?-?-?-?-?-?-?-?-?- 28w 5d 187 lb(+14 lb) 116/70 Negative -?-?-?-?-?-?-?-?-?-?-?-?- Negative 156 28 ? -?-?-?-?-?-?-?-?-?-?-?-?- ? ? MH-No VB, LOF. Good FM. 28 wk labs:add FE and 3hr GTT ordered. Tdap, larc. Growth US 32 and 36wk 11/04/21-?-?-?-?-?-?-?-?-?-?-?-?- 30w 5d 189 lb 6.4 oz(+16 lb 6.4 oz) 108/68 Nega tive -?-?-?-?-?-?-?-?-?-?-?-?- Negative 155 30 ? -?-?-?-?-?-?-?-?-?-?-?-?- ? ? JV- pt is GDM and recording glucose levels which are normal. she will see Dr. Altamirano tomorrow, 11/19/21-?-?-?-?-?-?-?-?-?-?-?-?- 32w 6d 188 lb(+15 lb) 112/64 Negative -?-?-?-?-?-?-?-?-?-?-?-?- Negative 150 33 ? -?-?-?-?-?-?-?-?-?-?-?-?- ? ? SM- no vb lof good fm no reuglar ctx BS controlled check cbc today 12/02/21-?-?-?-?-?-?-?-?-?-?-?-?- 34w 5d 190 lb 6 oz(+17 lb 6 oz) 122/84 Negative -?-?-?-?-?-?-?-?-?-?-?-?- Negative 161 34A ? -?-?-?-?-?-?-?-?-?-?-?-?- ? ? JV- doing well with glucose levels. no meds still. no lof, vaginal bleeding, or dec fm. 12/17/21-?-?-?-?-?-?-?-?-?-?-?-?- 36w 6d 189 lb 2 oz(+16 lb 2 oz) 108/82 Negative -?-?-?-?-?-?-?-?-?-?-?-?- Negative 154 36 ? 2-?-?-?-?-?-?-?-?-?- ?-?-?- 50 -2 JV- no lof ,vaginal bleed ingd, or dec fm. gbs collected. 12/24/21-?-?-?-?-?-?-?-?-?-?-?-?- 37w 6d 187 lb 4 oz(+14 lb 4 oz) 128/80 Negative -?-?-?-?-?-?-?-?-?-?-?-?- Negative 145 37 Cephalic 2.5-?-?-?-?-?-?-?-?- ?-?-?-?- 60 -2 SM- n ovb lof good fm no regualr ctx bs controlled 12/28/21-?-?-?-?-?-?-?-?-?-?-?-?- 38w 3d 189 lb 4 oz(+16 lb 4 oz) 116/76 Negative -?-?-?-?-?-?-?-?-?-?-?-?- Negative 140 38 Cephalic 3-?-?-?-?-?-?-?-?-?- ?-?-?- 70 ? SM- no vb lof good fm no regular ct x SM- no vb lof dec fm no regular ctx, nst now membranes swept IOL tuesday 7 am SM- no vb lof dec fm no regular ctx, nst now membranes swept- NRNST going down for IOL now ACOG First Trimester First Trimester: Desire for , Alcohol, Tobacco Cessation, Illicit/Recreational Drug/Substance Use, Intimate Partner Violence, Barriers to care, Unstable Housing, Communication Barriers, Environmental/Work Hazards, Anticipated Course of Care, Toxoplasmosis Precations, Use of Any medications, Sexual activity, Exercise, Dental Care, Sauna/Hot tub use, Seat Belt use, Childbirth classes/Hospital facilities, Travel, Indications for Ultrasound and Screening for Aneuploidy; Discussed Second Trimester Second Trimester: Signs and Symptoms of Labor, Selecting a care provider, Reproductive Life Planning & Contreception, Care Planning, Depression/Anxiety and Intimate Partner Violence; Discussed Tobacco Cessation Third Trimester Third Trimester: Pain Management Plans, Labor support person(s), Immediate Larc, Signs and Symptoms of Preeclampsia, Feeding No , [place] Education and Family Medical Leave or Disability Forms Diagnostics Diagnostics Diagnostics: ?? ? Gest Glucose Tolerance ?MG/DL ?? ? Glucose 1 Hr 50 gm 135 mg/dL (70-140) ?? ? Hgb 10.4 g/dL (12.0-15.0)? L ?? ? Hct 30.7 % (37-47)? L Details: HIV: Urine Culture: Sequential Screen: NIPT Screen: ROS Const Reports system reviewed and no additional complaints, except as documented Card Reports system reviewed and no additional complaints, except as documented Resp Reports system reviewed and no additional complaints, except as documented GI Reports system reviewed and no additional complaints, except as documented and Reports nausea Reports system reviewed and no additional complaints, except as documented Musc Reports system reviewed and no additional complaints, except as documented Exam Const General: cooperative, healthy appearing, comfortable and anxious [facility] Head: normal to inspection Nose: external nose normal Face and sinus: normal facial exam Neck Neck: normal visual inspection, full ROM and no lymphadenopathy Thyroid: thyroid normal Chest Chest palpation & inspection: normal inspection of the chest Resp Effort & Inspection: normal respiratory effort GI Inspection: normal to inspection Palpation: soft and other (gravid uterus) Other: vertex and appropriate size for gestational age Other: Cervical Exam: Extrem General: pedal edema Office Procedures Non-stress Test Non-Stress Test Heart Rate Baseline: 140 Heart Rate Variability: moderate (min-mod) Movement: Absent Heart Rate Accelerations: Absent Decelerations: Absent Contractions: Present Impression: Yes Non-reactive Non-stress test Results POC Urinalysis 2 Dip? (Clinic) Office Urine Glucose Negative ? ? Last Edit by Kimberly Wilkins on 12/28/21 10:47 Office Urine Protein Negative ? ? Last Edit by Kimberly Wilkins on 12/28/21 10:47 Coding Level of Care Code OB Routine Diagnoses Gestational diabetes? O24.410 ? ? ? Gestational diabetes mellitus control: diet-controlled ? ? ? Trimester: third trimester Anemia in preg-unspec? O99.019 COVID-19 affecting , antepartum? O98.519; U07.1 Infertility? H/O oligohydramnios in prior , currently ? O09.299 Supervision of other normal ? Z34.80 ? Z3A.38 ? ? ? Weeks of gestation: 38 weeks ASCUS of cervix with negative high risk HPV? R87.610 PCOS (polycystic ovarian syndrome)? E28.2 CPT Codes Non-Stress Test (48709) Assessment and Plan Assessment and Plan (1) Gestational diabetes: ?Status:?Acute ?Qualifiers: ?Gestational diabetes mellitus control:?diet-controlled??Trimester:?third trimester? Qualified Code(s):?O24.410 - Gestational diabetes mellitus in , diet controlled ?Comment: diet controlled, endocrine following. growth us at 36, deliver by 40 (2) Anemia in preg-unspec: ?Status:?Acute ?Comment: Add FE (3) COVID-19 affecting , antepartum: ?Status:?Acute ?Comment: Start aspirin and growth US at 32 weeks and 36 (4) Infertility: ?Status:?Acute ?Comment: Clomid (5) H/O oligohydramnios in prior , currently : ?Status:?Acute ?Comment: US at 36 weeks (6) Supervision of other normal : ?Status:?Acute ?Comment: PRR CIRO: 01/08/22 girl Chanell PC: Price Spouse: Ibrahima (7) : ?Status:?Acute ?Qualifiers: ?Weeks of gestation:?38 weeks? Qualified Code(s):?Z3A.38 - 38 weeks gestation of ?Comment: GBS negative, anatomy nl, declines genetic and carrier (8) ASCUS of cervix with negative high risk HPV: ?Status:?Acute ?Comment: repeat pap in 3 years (9) PCOS (polycystic ovarian syndrome): ?Status:?Acute ? ? ? Orders: Orders POC Urinalysis 2 Dip? (Clinic) Today ? ? OB NST Today O09.299 - Supervision of with other poor reproductive or obstetric history, unspecified trimester ? 12/28/21 1115 <Electronically signed by Samantha Serra MD> Date Samantha Serra MD Cosign Signature: Date (if applicable) ? CC: ? ~ Patient presents IOL, plan management for with pitocin/AROM. Pain management: plans epidural. GBS negative. Management of any complications: gdma1 check BS per protocol I have reviewed the [facility] and made any clinically relevant updates. Assessment & Plan Assessment/Plan (1) Non-reactive NST (non-stress test): (2) Decreased movements in third trimester: (3) ASCUS of cervix with negative high risk HPV: (4) : QUALIFIERS: Weeks of gestation: 38 weeks Qualified Code(s): Z3A.38 - 38 weeks gestation of (5) Supervision of other normal : (6) H/O oligohydramnios in prior , currently : (7) COVID-19 affecting , antepartum: (8) Anemia in preg-unspec: (9) Gestational diabetes: QUALIFIERS: Gestational diabetes mellitus control: diet-controlled Trimester: third trimester Qualified Code(s): O24.410 - Gestational diabetes mellitus in , diet controlled (10) Infertility: (11) PCOS (polycystic ovarian syndrome):
[2021-12-28 14:21] LABS: Bedside Glucose 83 mg/dL (74-106)
[2021-12-28] MEDS: fentaNYL-bupivacaine (epidural) 100 ML BAG EPIDURAL (14:21)
[2021-12-28] MEDS: LACTATED RINGERS 500 ML 999 ML IV ×3 (14:31→20:45)
[2021-12-28] MEDS: Ondansetron 4 MG/2 ML Vial IV (17:13)
[2021-12-28] MEDS: Ringers, Lactated 1,000 ML IV.SOLN. 1000 ML IV (17:50)
[2021-12-28 17:55] LABS: Bedside Glucose 90 mg/dL (74-106)
[2021-12-28] MEDS: Oxytocin 30 units/NS 500 ml 30 UNITS/500 ML IV.SOLN 334 UNITS IV (18:08)
--- NOTE | 2021-12-28 18:18 | EX.PCM.OBRPT ---
Assessment & Plan (1) PCOS (polycystic ovarian syndrome): (2) Infertility: COMMENT: Clomid (3) Gestational diabetes: QUALIFIERS: Gestational diabetes mellitus control: diet-controlled Trimester: third trimester Qualified Code(s): O24.410 - Gestational diabetes mellitus in , diet controlled COMMENT: diet controlled, endocrine following. growth us at 36, deliver by 40 (4) Anemia in preg-unspec: COMMENT: Add FE (5) COVID-19 affecting , antepartum: COMMENT: Start aspirin and growth US at 32 weeks and 36 (6) H/O oligohydramnios in prior , currently : COMMENT: US at 36 weeks (7) Supervision of other normal : COMMENT: PRR CIRO: 01/08/22 girl Chanell PC: Price Spouse: Ibrahima (8) : QUALIFIERS: Weeks of gestation: 38 weeks Qualified Code(s): Z3A.38 - 38 weeks gestation of COMMENT: GBS negative, anatomy nl, declines genetic and carrier (9) ASCUS of cervix with negative high risk HPV: COMMENT: repeat pap in 3 years (10) Decreased movements in third trimester: (11) Non-reactive NST (non-stress test): COMMENT: plan IOL now PLAN: patient made cervical change on her own no induction needed, was in active labor (12) Vaginal delivery: COMMENT: SM IAL NRNST dec fm, gdma1 girl Chanell Maternal Data Information CIRO Calculator Estimated Delivery Date Method Current WG Current Estimate 01/08/22 LMP (Certain) 38w 3d Other Estimates 01/09/22 Ultrasound #1 38w 2d Vaginal Delivery Operative Information Date of Procedure: 12/28/21 Pre-Operative Diagnosis: IAL, dec movement NRNST Post-Operative Diagnosis: same Surgery / Procedure Performed: Spontaneous Vaginal Delivery Type of Anesthesia: Epidural Special Medications: none Estimated Blood Loss: 200 Fluids Replaced: crystalloid Findings Description of Procedure: Patient began pushing and delivered the head in the EDEN presentation. The head was delivered atraumatically and a loose nuchal cord ?1 was identified and the infant delivered through without complication. The anterior and posterior shoulders delivered without complication followed by the rest of the and the was placed on the maternal abdomen. Delayed cord clamping was employed for approximately 60 seconds. Cord was clamped and cut and gentle traction was applied to the cord and the placenta delivered spontaneously immediately following it was noted to be intact with three-vessel cord. The perineum and vagina were inspected and noted to have a first degree perineal laceration repaired with 3-0 rapide in the usual fashion. EBL was 200. Patient and tolerated delivery well. Presentation: EDEN Amniotic Membrane Rupture Type: Artificial Amniotic Fluid Description: Clear Placental Delivery Description: Spontaneous Placenta Disposition: [facility] Cord Vessel Description: 3 Vessels Cord Entanglement: Around neck x 1, loose Delayed Cord Clamping: Yes Post Vaginal Delivery Medications Given After Delivery: IV Pitocin Episiotomy Description: None Laceration: Perineal Extension/lac and 1st degree Complication Complications: None Procedures Urinary/Genital [id number]: [id number] Vaginal Delivery [facility]
--- NOTE | 2021-12-28 18:22 | DCINST_ITS ---
Discharge Instructions Diet Discharge Diet: No restrictions Activity Discharge Activity: Return to Normal Activity, May Drive, May Shower and May Take a Tub Bath (in 4 weeks) May resume sexual activity in: 6-8 weeks (after seen by OB provider) Weight Bearing Status: Full weight bearing Lifting Restrictions: none Dressing / Incision Call your doctor if you observe: Fever of 101 or Higher, Inability to urinate, Using more than 1 pad per hour (for more than 2 hours in a row or more), Shortness of breath, Dizziness, Chest pain and - (headache not controlled with tylenol, change in vision) Follow Up Care When: in 6 weeks for visit, call the office to make the appointment. If you had elevated blood pressures call the office to be seen within 1 week. Test Results: Test results from this visit will be discussed in further detail at your follow- up appointment, if applicable. Discharge Plan Admission Admit Date/Time: 12/28/21 12:15 Attending Provider: Samantha Serra Primary Care Provider: Care Physician,Priscilla Primary Discharge Orders/Prescriptions Prescriptions: No Action ferrous sulfate [Feosol] 325 mg (65 mg iron) tablet 325 mg PO DAILY aspirin [Baby Aspirin] 81 mg Tablet,Chewable 81 mg PO DAILY Gummies 400 mcg-35 mg- 25 mg-5 mg Tablet,Chewable 2 tab PO DAILY famotidine [Pepcid] 20 mg tablet 20 mg PO BID (DME) blood-glucose meter [[employer] Blood Glucose System] Kit See Rx Instructions .ROUTE .MEDSUPPLY Qty: 1 0RF Rx Instructions: As directed (DME) [employer] Test Strip See Rx Instructions .ROUTE .MEDSUPPLY Qty: 100 4RF Rx Instructions: QID (check fasting and 2 hr pp) Referrals / Follow Up: Care Physician,No Primary [Primary Care Provider] - Disposition Disposition (needs filled in before D/C Order can be placed): Home, Self Care
[2021-12-28 19:50] LABS: Bedside Glucose 92 mg/dL (74-106)
--- NOTE | 2021-12-28 20:37 | EKG12_ITS ---
Test Reason : TACHYCARDIA Blood Pressure : / mmHG Vent. Rate : 100 BPM Atrial Rate : 100 BPM P-R Int : 160 ms QRS Dur : 080 ms QT Int : 328 ms P-R-T Axes : 052 040 034 degrees QTc Int : 423 ms Normal sinus rhythm Normal ECG When compared with ECG of 16-SEP-2018 09:22, No significant change was found Confirmed by CHARIS REEVES, JACOBY ([id number]), publication editor DWIGHT TOMAS ([id number]) on 12/31/2021 9:31:53 AM Referred By: Samantha Serra Confirmed By:JACOBY VIZCAINO MD
[2021-12-29 00:11] VITALS: BP 110/70; PULSE 101; RESP 16; TEMP 36.2; O2SAT 97
[2021-12-29] MEDS: Naproxen 500 MG Tablet PO (04:23)
[2021-12-29 04:27] VITALS: BP 117/63; PULSE 81; RESP 16; TEMP 36.3
[2021-12-29 06:30] LABS: Bedside Glucose 86 mg/dL (74-106)
--- NOTE | 2021-12-29 07:51 | PCM.PN.OB ---
Subjective Subjective Patient doing well without complaints. Tolerating PO. Ambulating and voiding without difficulty. Feeding well. Denies chest pain, shortness of breath, calf pain/swelling, fevers, chills, lightheadedness. Objective Data Objective Data Vital Signs: Vital Signs Temp Pulse Resp BP Pulse Ox O2 Del Method 97.3 F L 81 16 117/63 97 Room Air 12/29/21 04:27 12/29/21 04:27 12/29/21 04:27 12/29/21 04:27 12/29/21 00:11 12/29/21 00:11 Oxygen Delivery Method Room Air Weight: 188 lb 4.396 oz Body Mass Index (BMI) 28.6 Intake & Output: Intake and Output for Last 24 Hours 12/27/21 12/28/21 12/29/21 23:59 23:59 23:59 Intake Total 3225.27 / 3225.27 Output Total 800 / 800 700 / 700 Balance 2425.27 / 2425.27 -700 / -700 Lab / Micro Data Result Diagrams: 12/28/21 12:45 Labs: Laboratory Results - last 24 hr 12/28/21 12:45: WBC 11.4 H, RBC 3.22 L, Hgb 9.9 L, Hct 29.3 L, MCV 91.0, MCH 30.7, MCHC 33.8, RDW Std Deviation 39.9, RDW Coeff of Igor 12.0, Plt Count 168, MPV 11.9, Immature Gran % (Auto) 0.700, Neut % (Auto) 80.8 H, Lymph % (Auto) 11.4 L, Haralson % (Auto) 6.8, Eos % (Auto) 0.1, Baso % (Auto) 0.2, Absolute Neuts (auto) 9.2 H, Absolute Lymphs (auto) 1.29, Nucleated RBC % 0 12/28/21 12:45: Blood Type O POSITIVE, Antibody Screen NEGATIVE 12/28/21 12:59: POC Glucose 84 12/28/21 14:03: POC Glucose 83 12/28/21 17:29: POC Glucose 90 12/28/21 19:07: POC Glucose 92 12/29/21 06:10: POC Glucose 86 Micro: Microbiology 12/28/21 12:45 Nasal Secretion SARS-CoV-2 Antigen (Rapid) - Final Physical Exam Const alert and oriented x3 HEENT normocephalic Eyes PERRL Neck full ROM Resp normal respiratory effort GI soft to palpation GI Narrative: FF below U Assessment & Plan (1) Vaginal delivery: COMMENT: SM IAL NRNST dec fm, gdma1 girl Chanell (2) Gestational diabetes: QUALIFIERS: Gestational diabetes mellitus control: diet-controlled Trimester: third trimester Qualified Code(s): O24.410 - Gestational diabetes mellitus in , diet controlled COMMENT: stable pp PLAN: Plan s/p PPD # 1 1. routine post delivery care 2. bottle feeding- support given 3. rh positive 4. rubella immune 5. home today
[2021-12-29 08:08] VITALS: BP 111/63; PULSE 74; RESP 16; TEMP 36.1
[2021-12-29 12:49] VITALS: BP 102/69; PULSE 74; RESP 16; TEMP 36.2
[2021-12-29 17:00] VITALS: BP 100/52; PULSE 78; RESP 16; TEMP 36.3
[2021-12-29 19:17] VITALS: BP 120/61; PULSE 68; RESP 16; TEMP 36.4; O2SAT 98
--- NOTE | 2021-12-29 19:25 | NURSING ---
MOB reports 's follow up rod filler appointment is on Tuesday.
== END 2021-12-29 19:30 | disposition home or self-care (01) | DRG 807 ==
PROVIDERS: Admitting Provider Obstetrics & Gynecology; Visit Provider Obstetrics & Gynecology
DX: O24.420 Gestational diabetes mellitus in childbirth, diet controlled (principal); Z37.0 Single live birth; E28.2 Polycystic ovarian syndrome; O76 Abnormality in fetal heart rate and rhythm complicating labor and delivery; O70.0 First degree perineal laceration during delivery; O99.284 Endocrine, nutritional and metabolic diseases complicating childbirth; O99.02 Anemia complicating childbirth; Z87.891 Personal history of nicotine dependence; Z3A.38 38 weeks gestation of pregnancy; O69.81X0 Labor and delivery complicated by cord around neck, without compression, not applicable or unspecified; Z86.16 Personal history of COVID-19
CPT/HCPCS: 59025; 59050; 82962; 85025; 86850; 86900; 86901; 87426; 93005; 99218; J7120; G0378; J2405

== ENCOUNTER → 2022-02-11 | Outpatient (CLI) | payer OTHER, SELFPAY ==
[2022-02-18 13:59] LABS: HPV Reflexed? NOT INDICATED
== END | disposition home or self-care (01) ==
LOC: LABSPEC 12:50
PROVIDERS: Referring Provider Obstetrics & Gynecology; Visit Provider Obstetrics & Gynecology
DX: Z12.4 Encounter for screening for malignant neoplasm of cervix (principal)
CPT/HCPCS: 88175; G0145

== ENCOUNTER → 2022-09-29 | Outpatient (CLI) | payer OTHER, SELFPAY ==
[2022-09-29 12:08] LABS: Absolute Lymphocyte Count 1.55 X10^3/uL (0.83-4.51); Absolute Neutrophil Count 4.4 X10^3/uL (2.0-7.7); Basophil# 0.02 X10^3/uL; Basophil% 0.3 % (0-1); Eosinophil# 0.02 X10^3/uL; Eosinophils% 0.3 % (0-5); Hematocrit 37.5 % (37-47); Hemoglobin 12.3 g/dL (12.0-15.0); Lymphocyte # 1.55 X10^3/ul (0.83-4.51); Lymphocyte % 24.3 % (19-41); Mean Corp Hgb Conc 32.8 g/dL (32-36); Mean Corpuscular Hgb 30.9 pg (27.0-32.0); Mean Corpuscular Volume 94.2 fL (81-99); Mean Platelet Vol. 11.1 fl (6.2-12.0); Monocyte# 0.38 X10^3/uL; NRBC Flagged by Analyzer 0 % (0-5); Neutrophil # 4.38 X10^3/uL (2.7-7.7); Neutrophil % 68.8 % (47-70); Platelet Count 227 K/mm3 (150-450); RBC Distribution Width CV 12.1 % (11.6-14.6); RBC Distribution Width SD 42.3 fl (35.1-43.9); Red Blood Count 3.98 M/mm3 (4.2-5.4); White Blood Count 6.4 K/mm3 (4.4-11.0)
[2022-09-29 12:50] LABS: Free T3 2.6 pg/mL (2.18-3.98); Glucose Challenge Gest 1H 50g 97 mg/dL (70-140); T4 Free Direct 0.91 ng/dL (0.76-1.46); Thyroid Stim Hormone (TSH) 0.97 uIU/mL (0.358-3.74)
[2022-09-29 13:22] LABS: HIV - WCH Non-Reactive (Nonreactive); Hepatitis B Surface Antigen Non-Reactive (Nonreactive); Hepatitis C Antibody Non-Reactive (Nonreactive); Rubella IgG Reactive (Nonreactive); Syphilis Antibodies Non-reactive
[2022-10-01 21:07] LABS: Chlamydia By Nucleic Acid AMP Negative (Negative)
[2022-10-01 21:44] LABS: Gonococcus By Nucleic Acid AMP Negative (Negative)
== END | disposition home or self-care (01) ==
PROVIDERS: Referring Provider Advanced Practice Midwife; Visit Provider Advanced Practice Midwife
DX: O99.281 Endocrine, nutritional and metabolic diseases complicating pregnancy, first trimester (principal); E01.0 Iodine-deficiency related diffuse (endemic) goiter; Z3A.09 9 weeks gestation of pregnancy
CPT/HCPCS: 36415; 82950; 84439; 84443; 84481; 85025; 86703; 86762; 86780; 86803; 86850; 86900; 86901; 87086; 87088; 87340; 87491; 87591

== ENCOUNTER → 2023-01-26 | Outpatient (CLI) | payer OTHER, SELFPAY ==
[2023-01-26 09:53] LABS: Absolute Lymphocyte Count 1.91 X10^3/uL (0.83-4.51); Absolute Neutrophil Count 4.3 X10^3/uL (2.0-7.7); Basophil# 0.04 X10^3/uL; Basophil% 0.6 % (0-1); Eosinophil# 0.04 X10^3/uL; Eosinophils% 0.6 % (0-5); Hematocrit 31.6 % (37-47); Hemoglobin 10.2 g/dL (12.0-15.0); Lymphocyte # 1.91 X10^3/ul (0.83-4.51); Lymphocyte % 28.4 % (19-41); Mean Corp Hgb Conc 32.3 g/dL (32-36); Mean Corpuscular Hgb 31.4 pg (27.0-32.0); Mean Corpuscular Volume 97.2 fL (81-99); Mean Platelet Vol. 11.2 fl (6.2-12.0); Monocyte# 0.41 X10^3/uL; Monocyte% 6.1 % (0-10); NRBC Flagged by Analyzer 0 % (0-5); Neutrophil # 4.29 X10^3/uL (2.7-7.7); Neutrophil % 63.9 % (47-70); Platelet Count 191 K/mm3 (150-450); RBC Distribution Width CV 11.9 % (11.6-14.6); RBC Distribution Width SD 42.5 fl (35.1-43.9); Red Blood Count 3.25 M/mm3 (4.2-5.4); White Blood Count 6.7 K/mm3 (4.4-11.0)
[2023-01-26 10:27] LABS: Glucose Challenge Gest 1H 50g 101 mg/dL (70-140)
[2023-01-26 10:39] LABS: T4 Free Direct 1.04 ng/dL (0.76-1.46); Thyroid Stim Hormone (TSH) 1.34 uIU/mL (0.358-3.74)
[2023-01-26 10:55] LABS: HIV - WCH Non-Reactive (Nonreactive); Syphilis Antibodies Non-reactive
== END | disposition home or self-care (01) ==
PROVIDERS: Registered Nurse; Referring Provider Nurse Practitioner Women's Health; Visit Provider Nurse Practitioner Women's Health
DX: Z34.90 Encounter for supervision of normal pregnancy, unspecified, unspecified trimester (principal); E01.0 Iodine-deficiency related diffuse (endemic) goiter
CPT/HCPCS: 36415; 82950; 84439; 84443; 85025; 86703; 86780

== ENCOUNTER → 2023-03-10 | Outpatient (CLI) | payer OTHER, SELFPAY ==
[2023-03-10 09:59] LABS: Absolute Lymphocyte Count 2.04 X10^3/uL (0.83-4.51); Absolute Neutrophil Count 4.4 X10^3/uL (2.0-7.7); Basophil# 0.04 X10^3/uL; Basophil% 0.6 % (0-1); Eosinophil# 0.06 X10^3/uL; Eosinophils% 0.9 % (0-5); Hematocrit 30.9 % (37-47); Hemoglobin 10.1 g/dL (12.0-15.0); Lymphocyte # 2.04 X10^3/ul (0.83-4.51); Lymphocyte % 29.1 % (19-41); Mean Corp Hgb Conc 32.7 g/dL (32-36); Mean Corpuscular Hgb 30.5 pg (27.0-32.0); Mean Corpuscular Volume 93.4 fL (81-99); Mean Platelet Vol. 11.7 fl (6.2-12.0); Monocyte# 0.47 X10^3/uL; Monocyte% 6.7 % (0-10); NRBC Flagged by Analyzer 0 % (0-5); Neutrophil # 4.36 X10^3/uL (2.7-7.7); Neutrophil % 62.3 % (47-70); Platelet Count 189 K/mm3 (150-450); RBC Distribution Width CV 11.7 % (11.6-14.6); RBC Distribution Width SD 39.5 fl (35.1-43.9); Red Blood Count 3.31 M/mm3 (4.2-5.4)
== END | disposition home or self-care (01) ==
LOC: PAVLAB 09:43
PROVIDERS: Referring Provider Obstetrics & Gynecology; Visit Provider Obstetrics & Gynecology
DX: O99.019 Anemia complicating pregnancy, unspecified trimester (principal); Z3A.00 Weeks of gestation of pregnancy not specified
CPT/HCPCS: 36415; 85025

== ENCOUNTER → 2023-03-30 | Outpatient (CLI) | payer OTHER, SELFPAY ==
--- NOTE | 2023-03-30 09:20 | US_ITS ---
STUDY: SECOND AND THIRD TRIMESTER OBSTETRICAL ULTRASOUND - LIMITED REASON FOR EXAM: Female, 27 years old h/o oligohydramnios prior LMP: Not provided PRIOR ULTRASOUND none TECHNIQUE: Standard TECHNICAL QUALITY: Adequate. FINDINGS: There is a single intrauterine fetus. The fetus is in a cephalic presentation. There is demonstrated cardiac activity with a heart rate of 139 bpm. There is a normal amniotic fluid volume. The largest amniotic fluid pocket measures 4.2 x 2.6 cm. The amniotic fluid index (MICHELLE) is 14.2. cm. The placenta is posterior not low-lying The cervix measures 3.4 cm in length. BIOMETRY: BPD: 8.24 cm: 33 weeks, 1 days HC: 31.83 cm: 35 weeks, 6 days AC: 31.54 cm: 35 weeks, 3 days FL: 7.15 cm: 36 weeks, 4 days Age by LMP: 36 weeks 1 day age by prior US: Not applicable CIRO by prior US Not applicable age by current US: 35 weeks, 6 days. CIRO by current US: 04/28/2023. Estimated weight: 2694 grams, +/- 404 grams, 35 percentile. US/OB Limited With Biometrics IMPRESSION: Single viable intrauterine gestation in cephalic presentation. Mean gestational age 35 weeks 6 days. Electronically Signed: Sammy Rockwell MD at 10:54 EDT ,
== END | disposition home or self-care (01) ==
PROVIDERS: Referring Provider Obstetrics & Gynecology; Visit Provider Obstetrics & Gynecology
DX: O09.299 Supervision of pregnancy with other poor reproductive or obstetric history, unspecified trimester (principal); Z3A.00 Weeks of gestation of pregnancy not specified
CPT/HCPCS: 76816

== ENCOUNTER → 2023-04-07 | Outpatient (CLI) | payer OTHER, SELFPAY | END | disposition home or self-care (01) | LOC: LABSPEC 13:32 | PROVIDERS: Referring Provider Obstetrics & Gynecology; Visit Provider Obstetrics & Gynecology | DX: Z34.90 Encounter for supervision of normal pregnancy, unspecified, unspecified trimester (principal) | CPT/HCPCS: 87081 ==

== ENCOUNTER 2023-04-13 09:25 | Outpatient (CLI) | payer OTHER, SELFPAY ==
[2023-04-13] VITALS (7 sets, daily range): BP systolic 118–135; BP diastolic 83–92; PULSE 75–95; TEMP 36.3; BMI 28.3
[2023-04-13 10:35] LABS: Hematocrit 29.1 % (37-47); Hemoglobin 9.3 g/dL (12.0-15.0); Mean Corpuscular Volume 90.7 fL (81-99); Mean Platelet Vol. 12.3 fl (6.2-12.0); Platelet Count 179 K/mm3 (150-450); RBC Distribution Width CV 12.5 % (11.6-14.6); RBC Distribution Width SD 41.1 fl (35.1-43.9); Red Blood Count 3.21 M/mm3 (4.2-5.4); White Blood Count 7.9 K/mm3 (4.4-11.0)
[2023-04-13 10:45] LABS: Protein, Urine (Random) 10.6 mg/dL (<11.9); Protein:Creat Ratio 162 mg/g CRE (0-200)
[2023-04-13 10:57] LABS: AST(SGOT) 12 U/L (15-37); Alanine Aminotransfer ALT/SGPT 8 U/L (13-56); Creatinine, Serum 0.46 mg/dL (0.55-1.02); EST Glomerular Filtration Rate 172 mL/min (>60); Est Glom Filt Rate - Afr Amer 208 mL/min (>60); Estimated Creatinine Clearance 183.67 ml/min; Uric Acid 4.1 mg/dL (2.6-6.0)
--- NOTE | 2023-04-16 10:35 | OB.TRI.HP_ITS ---
HPI - General HPI Narrative MAGEN THOMSON, is a 27 y/o @ 38 weeks who was sent to L&D from the office for mildly elevated blood pressures. She denies headaches, visual changes or epigastric pain. She denies lof, vaginal bleeding, or dec fm, Maternal Data Information CIRO Calculator Estimated Delivery Date Method Current WG Current Estimate 04/26/23 LMP (Certain) 38w 4d Other Estimates 04/24/23 Ultrasound #1 38w 6d PFSH PFSH Medical History Family history of hearing loss at age younger than 7 years Gestational diabetes Infertility Normal electrocardiogram PCOS (polycystic ovarian syndrome) Thyromegaly Vaginal delivery Home Medications PNV 153-FA 400 mcg-om3 35 mg-dha 25 mg-epa 5 mg-fish oil chew tablet ( Gummies) 2 tab PO DAILY 12/28/21 [History Last Taken 04/12/23] famotidine 10 mg tablet (Pepcid AC) 10 mg PO DAILY #30 tabs 12/27/22 [Rx Last Taken Unknown] ferrous sulfate 325 mg (65 mg iron) tablet (Iron (ferrous sulfate)) 325 mg PO DAILY 04/13/23 [History Last Taken 04/12/23] Allergy/AdvReac Type Severity Reaction Status Date / Time No Known Allergies Allergy Verified 04/13/23 10:20 Family History Grandmother Diabetes Surgical History H/O knee surgery History of foot surgery Social History adopted: No household members: family number of children: 2 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 animals: Yes pets and animals: dog(s) history of recent travel: No sexually active: Yes Smoking Status: Former smoker how long ago did patient quit smokin years alcohol intake: never details: social substance use type: does not use caffeine: Yes Type: carbonated beverages Number of servings: 2 what type of physical activity do you participate in: none seatbelt use: always do you feel safe at home: Yes additional social history: - Ibrahima History 5 Elective abortions 1 Hx Para 2 Spontaneous abortions 1 Hx # Term Pregnancies 2 Ectopic pregnancies Hx # Pregnancies 0 Multiple births # of living children 2 Past Pregnancies Del. Date Name GA/Weeks Outcome Route Bth Weight Gen Labor Lgth Anesthesia Del Locatn Provider FOB 09/06/18 THRASHER 40 live - full term 7lbs 3oz Male 10 h ours epidural [facility] PAKO Ibrahima 12/28/21 [place] 38 live - full term Female epidu ral [facility] Samantha Serra Ibrahima Delivery Date: 09/06/18 Last Updated by: Vanessa Rizvi SEVERE OLIGO Delivery Date: 12/28/21 Last Updated by: Emmy Jennings see problem list for complications, and SM IAL [email or web address] girl [place] Visit Details Expected Delivery Route/Plan Labor Preferences- CB/BF classes: no labor support person: Ibrahima labor intervention preferences:none pain management options preferred: epidural cut cord/dad catch: cord :no PP control planned: discussed/nuvaring discussed possible routes of delivery and associated risks: [] special requests: [] Plans Covid status: unvacinatted Flu vaccine: declined Tdap vaccine: given Rhogam: na LARC form signed: yes movement and labor precautions reviewed. Problem list reviewed and updated with the most current plan of care details and appropriate orders placed. Relevant counseling for the gestational age provided. Continue routine care and follow up unless otherwise noted in visit notes/problem list details OB Flowsheet Initial Weight: Not Recorded Date -?-?-?-?-?-?-?-?-?-?-?-?- EGA Weight BP Urine Prot -?-?-?-?-?-?-?-?-?-?-?-?- Glucose FHR FuHt Pres Dilation -?-?-?-?-?-?-?-?-?-?-?-?- Effaced St Visit Note 09/29/22 -?-?-?-?-?-?-?-?-?-?-?-?- 10w 1d 177 lb 8 oz 110/71 -?-?-?-?-?-?-?-?-?-?-?-?- 175 -?-?-?-?-?-?-?-?-?-?-?-?- KW- CRL 31.3mm c ons with dates. JV scanned. 10/27/22 -?-?-?-?-?-?-?-?-?-?-?-?- 14w 1d 175 lb 114/75 Negative -?-?-?-?-?-?-?-?-?-?-?-?- Negative 170 -?-?-?-?-?-?-?-?-?-?-?-?- KW- no cramping/ vb. US scheduled. declines AFP. no concerns 11/24/22 -?-?-?-?-?-?-?-?-?-?-?-?- 18w 1d 176 lb 6 oz 102/61 Trac e -?-?-?-?-?-?-?-?-?-?-?-?- Negative 150 -?-?-?-?-?-?-?-?-?-?-?-?- LC-no vb/crampin g. has anatomy scan scheduled for next week. 12/27/22 -?-?-?-?-?-?-?-?-?-?-?-?- 22w 6d 181 lb 6 oz 102/68 Nega tive -?-?-?-?-?-?-?-?-?-?-?-?- Negative 145 22 -?-?-?-?-?-?-?-?-?-?-?-?- LC- normal anato my. tsh/t4 added for thyromegaly hx. no vb/ctx/lof. +fm. 01/26/23 -?-?-?-?-?-?-?-?-?-?-?-?- 27w 1d 183 lb 112/70 Negative -?-?-?-?-?-?-?-?-?-?-?-?- Negative 156 27 -?-?-?-?-?-?-?-?-?-?-?-?- MH-No VB, LOF. G ood FM. 28 wk labs, larc. Denies concerns 02/10/23 -?-?-?-?-?-?-?-?-?-?-?-?- 29w 2d 183 lb 4 oz 112/77 Nega tive -?-?-?-?-?-?-?-?-?-?-?-?- Negative 162 29 -?-?-?-?-?-?-?-?-?-?-?-?- JV- pt has a vir al illness (neg for covid) no fevers but feels warm. will hold off on tdap today.encourage fluids and tylenol and rest. 02/23/23 -?-?-?-?-?-?-?-?-?-?-?-?- 31w 1d 183 lb 6 oz 108/71 Nega tive -?-?-?-?-?-?-?-?-?-?-?-?- Negative 135 31 -?-?-?-?-?-?-?-?-?--?-?-?- JV- no lof ,vagi nal bleeding, or dec fm. no complaints. tdap today. 03/10/23 -?-?-?-?-?-?-?-?-?-?-?-?- 33w 2d 184 lb 8 oz 111/67 -?-?-?-?-?--?-?-?-?-?-?-?- 155 32 -?-?-?-?-?-?-?-?-?-?-?-?- SM- no vb lof go od fm no regular ctx cbc ordered 04/07/23 -?-?-?-?-?-?-?-?-?-?-?-?- 37w 2d 187 lb 6 oz 120/86 Nega tive -?-?-?-?-?-?-?-?-?-?-?-?- Negative 130 36 Cephalic 3 -?-?-?-?-?-?-?-?-?-?-?-?- 70 -1 SM- no vb lof good fm n oreuglar ctx gbs done 04/13/23 -?-?-?-?-?-?-?-?-?-?-?-?- 38w 1d 186 lb 4 oz 138/98 138/96 Negative -?-?-?-?-?-?-?-?-?-?-?-?- Negative 135 38 Cephalic 4 -?-?-?-?-?-?-?-?-?-?-?-?- 70 -1 LC- no vb/ ctx/lof. good fm. small dime size soft mass on right breast with berman gland. LC- no vb/ctx/lof. good fm.s ent to WP for PEC work up for elevated BP. ROS Constitutional Constitutional: Reports systems reviewed and no addt'l complaints, except as documented Gastrointestinal Gastrointestinal: Denies bloating, constipation, cramping, diarrhea, nausea or vomiting Genitourinary Genitourinary: Reports other Details: Denies vaginal odor, vaginal bleeding, or vaginal discharge ; Denies difficulty urinating or flank pain NST FHR Rate Baby A Baseline: 130 Variability:: Moderate Accelerations:: 15 x 15 Decelerations:: None NST Reactive:: Yes FHR Category:: Category I Assessment & Plan (1) Anemia in preg-unspec: QUALIFIERS: Trimester: second trimester Qualified Code(s): O99.012 - Anemia complicating , second trimester COMMENT: Add FE (2) History of gestational diabetes in prior , currently : COMMENT: early GTT screening-normal (3) H/O oligohydramnios in prior , currently : COMMENT: US at 36 weeks (4) : QUALIFIERS: Weeks of gestation: 38 weeks Qualified Code(s): Z3A.38 - 38 weeks gestation of COMMENT: GBS Negative, NIPT, carrier, and AFP screening discussed and declined, Anatomy US normal (5) Supervision of other normal : COMMENT: PRR CIRO: 04/26/23 girl Addtrixie PC: Chanell Thrasher Spouse: Ibrahima (6) ASCUS of cervix with negative high risk HPV: COMMENT: repeat pap in 3 years PLAN: Plan blood pressures and labs within normal range. NST reactive Charges/Coding Multi Select Codes Urinary/Genital Urinary/Genital CPT Codes: 37863-99 non-stress test Interp
== END 2023-04-13 11:15 | disposition home or self-care (01) ==
LOC: WPOUT 09:29 → WP 09:30
PROVIDERS: Visit Provider Obstetrics & Gynecology
DX: O99.013 Anemia complicating pregnancy, third trimester (principal); Z3A.38 38 weeks gestation of pregnancy; Z87.891 Personal history of nicotine dependence; Z3A.00 Weeks of gestation of pregnancy not specified
CPT/HCPCS: 36415; 59025; 59050; 82565; 82570; 84156; 84450; 84460; 84550; 85027; 99221; G0378

== ENCOUNTER 2023-04-19 16:27 | Inpatient (IN) | payer OTHER, SELFPAY ==
[2023-04-19] VITALS (53 sets, daily range): BP systolic 112–145; BP diastolic 64–97; PULSE 72–129; TEMP 36.3–36.7; O2SAT 84–100; BMI 28.5
[2023-04-19] MEDS: LACTATED RINGERS 500 ML 999 ML IV (16:55)
[2023-04-19] MEDS: Oxytocin 15 Units/NS 250ml 15 UNITS/250 ML IV.SOLN 2 UNITS IV (17:04)
[2023-04-19 17:21] LABS: Absolute Lymphocyte Count 1.66 X10^3/uL (0.83-4.51); Basophil# 0.02 X10^3/uL; Basophil% 0.2 % (0-1); Eosinophil# 0.01 X10^3/uL; Eosinophils% 0.1 % (0-5); Hematocrit 30.9 % (37-47); Hemoglobin 9.8 g/dL (12.0-15.0); Lymphocyte # 1.66 X10^3/ul (0.83-4.51); Lymphocyte % 20.2 % (19-41); Mean Corp Hgb Conc 31.7 g/dL (32-36); Mean Corpuscular Hgb 28.8 pg (27.0-32.0); Mean Corpuscular Volume 90.9 fL (81-99); Mean Platelet Vol. 12.3 fl (6.2-12.0); Monocyte# 0.48 X10^3/uL; Monocyte% 5.9 % (0-10); NRBC Flagged by Analyzer 0 % (0-5); Neutrophil # 5.98 X10^3/uL (2.7-7.7); Platelet Count 212 K/mm3 (150-450); RBC Distribution Width CV 12.4 % (11.6-14.6); White Blood Count 8.2 K/mm3 (4.4-11.0)
[2023-04-19] MEDS: Lactated Ringers 1,000 ML 50 ML IV (17:27)
[2023-04-19] MEDS: fentaNYL-bupivacaine (epidural) 100 ML BAG EPIDURAL (17:49)
--- NOTE | 2023-04-19 18:07 | HP.PCM.OB_ITS ---
HPI - General General Date of Admission: 04/19/23 Date of Service: 04/19/23 HPI Narrative MAGEN THOMSON, is a 27 F at 39.0 weeks who presents for decreased movement. Having regular contractions. SVE /-1. Admitted for IOL-advance dilation. Maternal Data Information CIRO Calculator Estimated Delivery Date Method Current WG Current Estimate 04/26/23 LMP (Certain) 39w 0d Other Estimates 04/24/23 Ultrasound #1 39w 2d Final CIRO: 04/26/23 Final CIRO Source: US >20 weeks Gestational age: 39.0 [facility] Medical History (Updated 04/19/23 @ 18:11 by Amara Ortiz CNM) Family history of hearing loss at age younger than 7 years Gestational diabetes Gestational diabetes Infertility Normal electrocardiogram PCOS (polycystic ovarian syndrome) Thyromegaly Vaginal delivery Home Medications PNV 153-FA 400 mcg-om3 35 mg-dha 25 mg-epa 5 mg-fish oil chew tablet ( Gummies) 2 tab PO DAILY 12/28/21 [History Last Taken 04/12/23] famotidine 10 mg tablet (Pepcid AC) 10 mg PO DAILY #30 tabs 12/27/22 [Rx Last Taken Unknown] ferrous sulfate 325 mg (65 mg iron) tablet (Iron (ferrous sulfate)) 325 mg PO DAILY 04/13/23 [History Last Taken 04/12/23] Allergy/AdvReac Type Severity Reaction Status Date / Time No Known Allergies Allergy Verified 04/13/23 10:20 Family History Grandmother Diabetes Surgical History (Updated 04/19/23 @ 17:23 by Varsha Ash) H/O knee surgery History of foot surgery Social History adopted: No household members: family number of children: 2 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 animals: 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 pets and animals: dog(s) history of recent travel: No sexually active: Yes Smoking Status: Never smoker how long ago did patient quit smokin years alcohol intake: never details: social substance use type: does not use caffeine: Yes Type: carbonated beverages Number of servings: 2 what type of physical activity do you participate in: none seatbelt use: always do you feel safe at home: Yes additional social history: - Ibrahima History 5 Elective abortions 1 Hx Para 2 Spontaneous abortions 1 Hx # Term Pregnancies 2 Ectopic pregnancies Hx # Pregnancies 0 Multiple births # of living children 2 Past Pregnancies Del. Date Name GA/Weeks Outcome Route Bth Weight Infant Gen Labor Lgth Anesthesia Del Locatn Provider FOB 09/06/18 THRASHER 40 live - full term 7lbs 3oz Male 10 h ours epidural [facility] PAKO Ibrahima 12/28/21 [place] 38 live - full term Female epidu ral [facility] Samantha Wingwn Delivery Date: 09/06/18 Last Updated by: Vanessa Rizvi SEVERE OLIGO Delivery Date: 12/28/21 Last Updated by: Emmy Jennings see problem list for complications, and SM IAL [email or web address] girl [place] Visit Details Expected Delivery Route/Plan Labor Preferences- CB/BF classes: no labor support person: Ibrahima labor intervention preferences:none pain management options preferred: epidural cut cord/dad catch: cord :no PP control planned: discussed/nuvaring discussed possible routes of delivery and associated risks: [] special requests: [] Plans Covid status: unvacinatted Flu vaccine: declined Tdap vaccine: given Rhogam: na LARC form signed: yes movement and labor precautions reviewed. Problem list reviewed and updated with the most current plan of care details and appropriate orders placed. Relevant counseling for the gestational age provided. Continue routine care and follow up unless otherwise noted in visit notes/problem list details OB Flowsheet Initial Weight: Not Recorded Date -?-?-?-?-?-?-?-?-?-?-?-?- EGA Weight BP Urine Prot -?-?-?-?-?-?-?-?-?-?-?-?- Glucose FHR FuHt Pres Dilation -?-?-?-?-?-?-?-?-?-?-?-?- Effaced St Visit Note 09/29/22 -?-?-?-?-?-?-?-?-?-?-?-?- 10w 1d 177 lb 8 oz 110/71 -?-?-?-?-?-?-?-?-?-?-?-?- 175 -?-?-?-?-?-?-?-?-?-?-?-?- KW- CRL 31.3mm c ons with dates. JV scanned. 10/27/22 -?-?-?-?-?-?-?-?-?-?-?-?- 14w 1d 175 lb 114/75 Negative -?-?-?-?-?-?-?-?-?-?-?-?- Negative 170 -?-?-?-?-?-?-?-?-?--?-?-?- KW- no cramping/ vb. US scheduled. declines AFP. no concerns 11/24/22 -?-?-?-?-?-?-?-?-?-?-?-?- 18w 1d 176 lb 6 oz 102/61 Trac e -?-?-?-?-?-?-?--?-?-?-?-?- Negative 150 -?-?-?-?-?-?-?-?-?-?-?-?- LC-no vb/crampin g. has anatomy scan scheduled for next week. 12/27/22 -?-?-?-?-?-?-?-?-?-?-?-?- 22w 6d 181 lb 6 oz 102/68 Nega tive -?-?-?-?-?-?-?-?-?-?-?-?- Negative 145 22 -?-?-?-?-?-?-?-?-?-?-?-?- LC- normal anato my. tsh/t4 added for thyromegaly hx. no vb/ctx/lof. +fm. 01/26/23 -?-?-?-?-?-?-?-?-?-?-?-?- 27w 1d 183 lb 112/70 Negative -?-?-?-?-?-?-?-?-?-?-?-?- Negative 156 27 -?-?-?-?-?-?-?-?-?-?-?-?- MH-No VB, LOF. G ood FM. 28 wk labs, larc. Denies concerns 02/10/23 -?-?-?-?-?-?-?-?-?-?-?-?- 29w 2d 183 lb 4 oz 112/77 Nega tive -?-?-?-?-?-?-?-?-?-?-?-?- Negative 162 29 -?-?-?-?-?-?-?-?-?-?-?-?- JV- pt has a vir al illness (neg for covid) no fevers but feels warm. will hold off on tdap today.encourage fluids and tylenol and rest. 02/23/23 -?-?-?-?-?-?-?-?-?-?-?-?- 31w 1d 183 lb 6 oz 108/71 Nega tive -?-?-?-?-?-?-?-?-?-?-?-?- Negative 135 31 -?-?-?-?-?-?-?-?-?-?-?-?- JV- no lof ,vagi nal bleeding, or dec fm. no complaints. tdap today. 03/10/23 -?-?-?-?-?-?-?-?-?-?-?-?- 33w 2d 184 lb 8 oz 111/67 -?-?-?-?-?-?-?-?-?-?-?-?- 155 32 -?-?-?-?-?-?-?-?-?-?-?-?- SM- no vb lof go od fm no regular ctx cbc ordered 04/07/23 -?-?-?-?-?-?-?-?-?-?-?-?- 37w 2d 187 lb 6 oz 120/86 Nega tive -?-?-?-?-?-?-?-?-?-?-?-?- Negative 130 36 Cephalic 3 -?-?-?-?-?-?-?-?-?-?-?-?- 70 -1 SM- no vb lof good fm n oreuglar ctx gbs done 04/13/23 -?-?-?-?-?-?-?-?-?-?-?-?- 38w 1d 186 lb 4 oz 138/98 138/96 Negative -?-?-?-?-?-?-?-?-?-?-?-?- Negative 135 38 Cephalic 4 -?-?-?-?-?-?-?-?-?-?-?-?- 70 -1 LC- no vb/ ctx/lof. good fm. small dime size soft mass on right breast with berman gland. LC- no vb/ctx/lof. good fm.s ent to for PEC work up for elevated BP. NST FHR Rate Baby A Baseline: 120 Variability:: Moderate Accelerations:: 15 x 15 Decelerations:: None NST Reactive:: Yes FHR Category:: Category I Uterine Activity:: 3-4 ROS Constitutional Constitutional: Denies change in weight, fatigue, fever(s), headache(s), poor appetite or weakness Eyes Eyes: Denies blurry vision, change in vision, floaters, seeing flashes or spots in vision ENT HEENT: Denies dizziness, headache(s), loss taste/smell or sore throat Cardiovascular Cardiovascular: Denies chest pain, dizziness, dyspnea, irregular heart rhythm, lightheadedness, palpitations or rapid heart rate Respiratory/Chest Respiratory/Chest: Denies change in mental status, chest tightness, cough, dyspnea or breast pain Gastrointestinal Gastrointestinal: Denies anorexia, chewing difficulty, constipation, diarrhea or weight changes Genitourinary Genitourinary: Denies difficulty urinating, dysuria, flank pain, genital pain, urinary frequency or urinary urgency Musculoskeletal Musculoskeletal: Denies back pain, difficulty walking, extremity pain, joint pain, muscle cramps or muscle weakness Integumentary Integumentary: Denies lesions or unusual bruising Neurologic Neurologic: Denies abnormal movements, abnormal speech, dizziness, numbness, seizure-like activity, syncope or weakness Psychiatric Psychiatric: Denies behavioral changes, change in appetite, confusion, depression, homicidal ideation, suicidal ideation or suicidal thoughts Endocrine Endocrinology: Denies excessive sweating, polydipsia or polyuria Hematologic/Lymphatic Hematologic/Lymphatic: Denies anemia Allergic/Immunologic Allergic/Immunologic: Denies itchy eyes, lip swelling, throat swelling, tongue swelling or wheezing Vital Signs Vital Signs Vital Signs: 04/19/23 16:16 04/19/23 16:16 04/19/23 17:09 Temperature Temperature Source Temporal Pulse Rate 85 Blood Pressure 140/97 H BP Systolic 140 BP Diastolic 97 Pulse Ox 04/19/23 17:09 04/19/23 17:35 04/19/23 17:36 Temperature 97.5 F L Temperature Source Pulse Rate 76 Blood Pressure BP Systolic BP Diastolic Pulse Ox 84 04/19/23 17:36 04/19/23 17:42 04/19/23 17:42 Temperature Temperature Source Pulse Rate 100 Blood Pressure 145/93 H BP Systolic 145 BP Diastolic 93 Pulse Ox 100 04/19/23 17:41 04/19/23 17:48 04/19/23 17:48 Temperature Temperature Source Pulse Rate 98 Blood Pressure 131/78 H BP Systolic 131 BP Diastolic 78 Pulse Ox 100 04/19/23 17:48 04/19/23 17:49 04/19/23 17:49 Temperature Temperature Source Pulse Rate 91 Blood Pressure 134/82 H BP Systolic 134 BP Diastolic 82 Pulse Ox 100 04/19/23 17:52 04/19/23 17:52 04/19/23 17:53 Temperature Temperature Source Pulse Rate 108 H Blood Pressure 140/87 H 133/77 H BP Systolic 140 133 BP Diastolic 87 77 Pulse Ox 04/19/23 17:53 04/19/23 17:53 04/19/23 17:57 Temperature Temperature Source Pulse Rate 101 H Blood Pressure 133/83 H BP Systolic 133 BP Diastolic 83 Pulse Ox 100 04/19/23 17:57 04/19/23 17:58 04/19/23 17:58 Temperature Temperature Source Pulse Rate 127 H 103 H Blood Pressure BP Systolic BP Diastolic Pulse Ox 99 04/19/23 18:02 04/19/23 18:02 04/19/23 18:03 Temperature Temperature Source Pulse Rate 129 H 107 H Blood Pressure 120/70 BP Systolic 120 BP Diastolic 70 Pulse Ox 04/19/23 18:03 Temperature Temperature Source Pulse Rate Blood Pressure BP Systolic BP Diastolic Pulse Ox 100 Weight Weight: 187 lb 8 oz Body Mass Index (BMI) 28.5 Physical Exam Const alert, oriented x3 and no apparent distress General Appearance: cooperative Orientation / Consciousness: awake HEENT normocephalic Neck full ROM Lymph Lymphatic: no lymphadenopathy noted Chest inspection of chest normal Resp normal respiratory effort and normal air movement Effort and Inspection: able to speak in complete sentences and symmetric chest movement GI soft to palpation and non-tender Inspection: gravid Palpation: soft; Negative for tender external exam normal Manual OB Exam: dilated 6, effaced 80 and station -1 Back/Spine normal to inspection Extremity normal to inspection and full ROM Skin no rashes or lesions noted Psych mental status grossly normal Appearance: grossly normal Speech: normal speech Labs Labs Labs: Blood Type O POSITIVE Antibody Screen NEGATIVE Hct 30.9 % (37-47) L Hgb 9.8 g/dL (12.0-15.0) L Obstetrics Ultrasound Syphilis Total Ab Non-reactive Rubella IgG Antibody Reactive (Nonreactive) Hep Bs Antigen Non-Reactive (Nonreactive) Hepatitis C Antibody Non-Reactive (Nonreactive) Chlamydia DNA (KAMILA) Negative (Negative) N.gonorrhoeae DNA (KAMILA) Negative (Negative) HIV 1&2 Antibody Non-Reactive (Nonreactive) Glucose 1 Hr 50 gm 101 mg/dL (70-140) Gest Glucose Tolerance MG/DL Rhogam given: No Miscellaneous Test Assessment & Plan (1) Decreased movement: COMMENT: IOL PLAN: Patient presents IOL, plan management for with pitocin/AROM. Pain management: plans epidural. GBS negative. Management of any complications: none I have reviewed the [facility] and made any clinically relevant updates. Dr Serra aware of patient admission and agrees with plan of care (2) History of gestational diabetes in prior , currently : COMMENT: early GTT screening-normal (3) : QUALIFIERS: Weeks of gestation: 38 weeks Qualified Code(s): Z3A.38 - 38 weeks gestation of COMMENT: GBS Negative, NIPT, carrier, and AFP screening discussed and declined, Anatomy US normal (4) Anemia in preg-unspec: QUALIFIERS: Trimester: second trimester Qualified Code(s): O99.012 - Anemia complicating , second trimester COMMENT: Add FE (5) H/O oligohydramnios in prior , currently : COMMENT: US at 36 weeks (6) Supervision of other normal : COMMENT: PRR CIRO: 04/26/23 girl Addtrixie PC: Chanell Thrasher Spouse: Ibrahima (7) ASCUS of cervix with negative high risk HPV: COMMENT: repeat pap in 3 years Charges/Coding Multi Select Codes Urinary/Genital Urinary/Genital CPT Codes: No Charge
[2023-04-19 19:26] LABS: Syphilis Antibodies Non-reactive
--- NOTE | 2023-04-19 20:23 | EX.PCM.OBRPT ---
Assessment & Plan (1) Decreased movement: COMMENT: IOL (2) : QUALIFIERS: Weeks of gestation: 38 weeks Qualified Code(s): Z3A.38 - 38 weeks gestation of COMMENT: GBS Negative, NIPT, carrier, and AFP screening discussed and declined, Anatomy US normal (3) History of gestational diabetes in prior , currently : COMMENT: early GTT screening-normal (4) Anemia in preg-unspec: QUALIFIERS: Trimester: second trimester Qualified Code(s): O99.012 - Anemia complicating , second trimester COMMENT: Add FE (5) H/O oligohydramnios in prior , currently : COMMENT: US at 36 weeks (6) Supervision of other normal : COMMENT: PRR CIRO: 04/26/23 girl Joannatrixie PC: Chanell Thrasher Spouse: Ibrahima (7) ASCUS of cervix with negative high risk HPV: COMMENT: repeat pap in 3 years Maternal Data Information CIRO Calculator Estimated Delivery Date Method Current WG Current Estimate 04/26/23 LMP (Certain) 39w 0d Other Estimates 04/24/23 Ultrasound #1 39w 2d Final CIRO: 04/26/23 Final CIRO Source: US >20 weeks Gestational age: 39.0 Vaginal Delivery Maternal Presentation Maternal Presentation: Medically Indicated Induction Maternal Presentation: Progressed well to 10cm dilated and made steady progress with effective maternal pushing. Delivered the head in EDEN presentation. The head was delivered atraumatically and no nuchal cord was identified. The anterior and posterior shoulders delivered without complication followed by the rest of the and the infant was placed on the maternal abdomen. Delayed cord clamping was employed for approximately 3 minutes. Cord was clamped and cut and gentle traction was applied to the cord and the placenta delivered spontaneously. Immediately following, it was noted to be intact with a 3 vessel cord. The perineum and vagina were inspected and noted to have no laceration. EBL was 100cc. Patient and tolerated delivery well. Apgars 8/9. Dr Serra notified of vaginal delivery and orders reviewed. Physician agrees with current plan of care. Type of Induction: Pitocin Medical Reason for Induction: Compromise: list: (decreased movement ) Operative Information Date of Procedure: 04/19/23 Pre-Operative Diagnosis: See AP comments Post-Operative Diagnosis: Same Surgery / Procedure Performed: Spontaneous Vaginal Delivery shell grader #1: Amara Ortiz Type of Anesthesia: Epidural Estimated Blood Loss: 100 Time of Delivery: 20:15 Findings Presentation: Vertex Amniotic Membrane Rupture Type: Artificial Amniotic Fluid Description: Clear Placental Delivery Description: Spontaneous Placenta Disposition: [facility] Cord Vessel Description: 3 Vessels Cord Entanglement: None Infant A Gender: Female (1 minute): 8 (5 minute): 9 Delayed Cord Clamping: Yes Post Vaginal Delivery Medications Given After Delivery: IV Pitocin Episiotomy Description: None Laceration: None Complication Complications: None Multi Select Codes Urinary/Genital Urinary/Genital CPT Codes: 60532 Vaginal Delivery [facility]
--- NOTE | 2023-04-19 20:26 | DCINST_ITS ---
Discharge Instructions Diet Discharge Diet: No restrictions Activity Discharge Activity: Return to Normal Activity May resume sexual activity in: 6-8 weeks Dressing / Incision Call your doctor if you observe: Fever of 101 or Higher, Coldness, Increased Pain, Numbness or Tingling, Change in Color, Inability to urinate, Inability to have a bowel movement, Using more than 1 pad per hour, Shortness of breath, Dizziness, Fainting spells, Swelling in the ankles, Chest pain, Increased palpitations (irregular heartbeat), Calf discomfort and Uncontrolled pain Follow Up Care Please Follow Up With: Amara Ortiz CNM When: Please call the office to schedule your follow up appointment in 6 weeks. If you had high blood pressure please call to schedule an appointment in 2 weeks. Test Results: Test results from this visit will be discussed in further detail at your follow- up appointment, if applicable. Discharge Plan Admission Admit Date/Time: 04/19/23 16:27 Attending Provider: Amara Ortiz Primary Care Provider: Care Physician,No Primary Discharge Orders/Prescriptions Prescriptions: No Action famotidine [Pepcid AC] 10 mg tablet 10 mg PO DAILY Qty: 30 6RF Gummies 400 mcg-35 mg- 25 mg-5 mg Tablet,Chewable 2 tab PO DAILY ferrous sulfate [Iron (ferrous sulfate)] 325 mg (65 mg iron) tablet 325 mg PO DAILY Referrals / Follow Up: Care Physician,No Primary [Primary Care Provider] -
[2023-04-19] MEDS: Oxytocin 15 Units/NS 250ml 15 UNITS/250 ML IV.SOLN 83 UNITS IV (20:50)
[2023-04-20 01:11] VITALS: BP 126/75; PULSE 99; RESP 16; TEMP 36.9; O2SAT 97
[2023-04-20 04:07] VITALS: BP 116/75; PULSE 92; RESP 16; TEMP 36.6; O2SAT 96
[2023-04-20 07:20] VITALS: BP 121/82; PULSE 72; RESP 18; TEMP 36.5; O2SAT 97
[2023-04-20] MEDS: Ibuprofen 600 MG Tablet PO (07:46)
--- NOTE | 2023-04-20 07:53 | PN.OBGYN_ITS ---
Subjective Subjective Patient doing well without complaints. Tolerating PO. Ambulating and voiding without difficulty. Feeding well. Denies chest pain, shortness of breath, calf pain/swelling, fevers, chills, lightheadedness. Objective Data Objective Data Vital Signs: Vital Signs Temp Pulse Resp BP Pulse Ox O2 Del Method 97.8 F 92 16 116/75 96 Room Air 04/20/23 04:07 04/20/23 04:07 04/20/23 04:07 04/20/23 04:07 04/20/23 04:07 04/20/23 04:07 Oxygen Delivery Method Room Air Weight: 187 lb 8 oz Body Mass Index (BMI) 28.5 Intake & Output: Intake and Output for Last 24 Hours 04/18/23 04/19/23 04/20/23 23:59 23:59 23:59 Intake Total 1498.87 / 1498.87 Output Total 875 / 875 400 / 400 Balance 623.87 / 623.87 -400 / -400 Lab / Micro Data 04/19/23 16:55 Labs: Laboratory Results - last 24 hr 04/19/23 16:55: WBC 8.2, RBC 3.40 L, Hgb 9.8 L, Hct 30.9 L, MCV 90.9, MCH 28.8, MCHC 31.7 L, RDW Std Deviation 41.0, RDW Coeff of Igor 12.4, Plt Count 212, MPV 12.3 H, Immature Gran % (Auto) 0.600, Neut % (Auto) 73.0 H, Lymph % (Auto) 20.2, Mcdonough % (Auto) 5.9, Eos % (Auto) 0.1, Baso % (Auto) 0.2, Absolute Neuts (auto) 6.0, Absolute Lymphs (auto) 1.66, Nucleated RBC % 0, Syphilis Total Ab Non- reactive, Blood Type O POSITIVE, Antibody Screen NEGATIVE Physical Exam Const alert and oriented x3 HEENT normocephalic Eyes PERRL Neck full ROM Resp normal respiratory effort GI soft to palpation GI Narrative: FF below U Assessment & Plan (1) Vaginal delivery: COMMENT: KW IAL dec fm, gdma1 girl Adilynn (2) Anemia: QUALIFIERS: Anemia type: iron deficiency Iron deficiency anemia type: unspecified iron deficiency Qualified Code(s): D50.9 - Iron deficiency anemia, unspecified COMMENT: Continue PNV and Fe PLAN: Plan s/p PPD # 1. routine post delivery care 2. bottle feeding- support given 3. rh positive 4. rubella immune 5. home today
[2023-04-20 11:25] VITALS: BP 124/84; PULSE 75; RESP 16; TEMP 36.7; O2SAT 97
--- NOTE | 2023-04-20 13:14 | NURSING ---
With patient's history of mastitis and not this time, discussed non nursing breast care. Instructed wearing a bra continuously for the next 3-4 days, and no nipple stimulation. If continues to have issues with engorgement, instructed on the use of cabbage leaves to assist with drying up milk. number provided to patient if she has any issues with engorgement or questions about drying up milk.
[2023-04-20 15:00] VITALS: BP 123/80; PULSE 79; RESP 16; TEMP 36.7; O2SAT 97
[2023-04-20 19:25] VITALS: BP 115/78; PULSE 71; RESP 18; TEMP 36.8; O2SAT 97
== END 2023-04-20 21:00 | disposition home or self-care (01) | DRG 807 ==
LOC: WPOUT 16:29 → WP 16:29
PROVIDERS: Admitting Provider Advanced Practice Midwife; Referring Provider Advanced Practice Midwife; Visit Provider Advanced Practice Midwife
DX: O36.8130 Decreased fetal movements, third trimester, not applicable or unspecified (principal); Z37.0 Single live birth; D50.9 Iron deficiency anemia, unspecified; O99.02 Anemia complicating childbirth; Z3A.39 39 weeks gestation of pregnancy; Z87.59 Personal history of other complications of pregnancy, childbirth and the puerperium; Z87.891 Personal history of nicotine dependence
CPT/HCPCS: 59025; 59050; 85025; 86780; 86850; 86900; 86901; 99221; J7120; G0378

== ENCOUNTER → 2024-07-18 | Outpatient (CLI) | payer OTHER, SELFPAY ==
[2024-07-25 07:13] LABS: HPV Reflexed? NOT INDICATED
== END | disposition home or self-care (01) ==
LOC: LABSPEC 14:47
PROVIDERS: Referring Provider Nurse Practitioner Family; Visit Provider Nurse Practitioner Family
DX: N89.8 Other specified noninflammatory disorders of vagina (principal); Z12.4 Encounter for screening for malignant neoplasm of cervix
CPT/HCPCS: 87070; 87205; 88175; G0145

== ENCOUNTER → 2024-07-25 | Outpatient (CLI) | payer OTHER, SELFPAY ==
--- NOTE | 2024-07-25 08:57 | BI_ITS ---
PROCEDURE: DIAG MAMM W/CAD, BILAT REASON FOR EXAM: F, Age 28 y/o, bilateral breast lumps. TECHNIQUE: Bilateral screening digital breast tomosynthesis with 2D and 3D images. Computer aided detection. COMPARISON: Prior exam(s) dating back to March 24, 2021.. FINDINGS: The breasts are extremely dense which lowers the sensitivity of mammography. Stable examination. No suspicious masses, areas of developing architectural distortion, or suspicious calcifications.. With the patient's history of bilateral breast lumps, correlation with ultrasound recommended. BI/DIAG MAMM W/CAD, BILAT IMPRESSION: BI-RADS 0: INCOMPLETE - NEED ADDITIONAL IMAGING EVALUATION. Follow-up code: Sonographic correlation recommended. The patient will be notified of the results by letter. Reading Location: [place] [id number]
--- NOTE | 2024-07-25 08:57 | US_ITS ---
PROCEDURE: BREAST LIMITED UNILATERAL REASON FOR EXAM: Palpable lump in the right breast. COMPARISON: Comparison is made with prior mammogram done earlier in the day. TECHNIQUE: Targeted ultrasound of the upper aspect of the right breast was examined. FINDINGS: RIGHT: Right breast ultrasound was targeted to the upper-outer quadrant of the right breast.. There is a 5 mm x 5 mm x 3 mm cyst at the 11 o'clock position of the breast at 5 cm from the nipple. US/Breast Limited Unilateral IMPRESSION: BI-RADS 2: BENIGN. RECOMMEND ANNUAL MAMMOGRAPHIC SCREENING. Follow-up code: Routine Follow-up BI-RADS 2: BENIGN. RECOMMEND ANNUAL MAMMOGRAPHIC SCREENING. Reading Location: [id number]
--- NOTE | 2024-07-25 09:47 | US_ITS ---
PROCEDURE: BREAST LIMITED UNILATERAL REASON FOR EXAM: Palpable lump. COMPARISON: Comparison is made with prior mammogram done earlier in the day. TECHNIQUE: The upper-outer aspect of the right breast was examined with ultrasound. FINDINGS: RIGHT: The mammographic abnormality corresponds to a 5 mm x 5 mm x 3 mm cyst at the 11 o'clock position of the breast at 5 cm from the nipple. US/Breast Limited Unilateral IMPRESSION: 5 mm x 5 mm x 3 mm cyst at the 11 o'clock position of the breast at 5 cm from t he nipple. BI-RADS 2: BENIGN. RECOMMEND ANNUAL MAMMOGRAPHIC SCREENING. Reading Location: [place] [id number]
== END | disposition home or self-care (01) ==
PROVIDERS: Referring Provider Nurse Practitioner Family; Visit Provider Nurse Practitioner Family
DX: N63.20 Unspecified lump in the left breast, unspecified quadrant (principal); N63.10 Unspecified lump in the right breast, unspecified quadrant
CPT/HCPCS: 76642; 77062; 77066; G0279